=== PATIENT | female | born 1950 | race Caucasian/White ===

== ENCOUNTER → 2016-02-25 | Outpatient (CLI) | payer MEDICARE, OTHER ==
[~2016-02-25] MED LIST: ASPI-983 PO; CALC-694 PO; CYAN500T2 PO; DEXT1TAB14 PO; METO-270 PO; OLME20TA22 PO
[2016-02-25 08:33] LABS: BLOOD UREA NITROGEN 12 MG/DL (7-18); BUN/CREATININE RATIO 14; CREATININE SERUM 0.87 MG/DL (0.60-1.30); GFR ESTIMATED > 60
== END ==
LOC: LAB 08:08
PROVIDERS: ATTEND Internal Medicine Critical Care Medicine
DX: R93.8 Abnormal findings on diagnostic imaging of other specified body structures (principal)
CPT/HCPCS: 36415; 82565; 84520

== ENCOUNTER → 2016-03-02 | Outpatient (CLI) | payer MEDICARE, OTHER ==
[~2016-03-02] MED LIST changes: +CATHETER FLUSH 10 ML SYR IV PRN; +IOHEXOL 350 MG/ML 100 ML (OMNIPAQUE 350) VIAL IV ONE; +NS 100 ML (IVPB) BAG IV ONE
--- NOTE | 2016-03-02 11:19 | Diagnostic Imaging Report ---
PROCEDURE: CT chest with contrast only. TECHNIQUE: Multiple contiguous axial images were obtained through the chest after administration of intravenous contrast. INDICATION: Followup lung nodule and evaluate left hilar fullness. FINDINGS: The lungs demonstrate upper lobe predominant centrilobular emphysema. There are also fibrotic changes in the lung bases which appear similar to the previous exam. This includes a 1-cm area in the anterior right costophrenic angle region. There is chronic atelectasis of the medial segment of the right middle lobe with obliteration of the segmental bronchus to the right middle lobe. This is similar to the prior exam. There is no pleural or pericardial effusion. The heart size is normal. The thoracic aorta demonstrates atherosclerotic plaque with no aneurysmal dilatation or significant stenosis. There is no mediastinal mass. There are mildly enlarged nonspecific mediastinal lymph nodes including precarinal 1.1 cm and a 0.9-cm infracarinal lymph node, when measured in short axis seen. Also a minimally prominent right hilar node measuring 0.8 cm is seen. Sections in the upper abdomen demonstrate no adrenal mass. The osseous structures appear grossly unremarkable. IMPRESSION: 1. Nodular densities up to 1 cm in size in the right lung base are likely related to scarring. Followup study in four months is recommended. 2. Atelectasis in the medial segment of the right middle lobe with obliteration of the right middle lobe bronchus. Evaluation with bronchoscopy is suggested to rule out an endobronchial lesion. 3. Borderline-sized mediastinal and right hilar lymph nodes of uncertain significance. Report was stat faxed to office of Dr. Moses @ 11:19 AM/evelyn. Dictated by: Dictated on workstation # [id number]
== END ==
LOC: RAD 09:08
PROVIDERS: ATTEND Internal Medicine Critical Care Medicine
DX: R93.8 Abnormal findings on diagnostic imaging of other specified body structures (principal); J98.11 Atelectasis
CPT/HCPCS: 71260

== ENCOUNTER → 2016-04-13 | Outpatient (CLI) | payer MEDICARE, OTHER ==
[~2016-04-13] MED LIST changes: -CATHETER FLUSH 10 ML SYR IV PRN; -IOHEXOL 350 MG/ML 100 ML (OMNIPAQUE 350) VIAL IV ONE; -NS 100 ML (IVPB) BAG IV ONE
--- OUTSIDE RECORDS SUMMARY | 2016-04-13 16:09 | XMS REPORT | Continuity of Care Document ---
Author Author [facility] Organization [facility] Address Unknown Phone Unavailable Allergies Active Description Code Type Severity Reaction Onset Reported/Identified Relationship to Patient Clinical Status Yes No Known Drug Allergies [id number] Drug Allergy Unknown N/ A 09/22/2015 Medications Problems Date Dx Coded Attending Type Code Diagnosis Diagnosed By 07/03/2015 LALY WATKINS MD Ot I10 ESSENTIAL (PRIMARY) HYPERTENSION 07/03/2015 LALY WATKINS MD Ot I25.10 ATHSCL HEART DISEASE OF [place] CORONARY 07/03/2015 LALY WATKINS MD Ot R06.02 SHORTNESS OF BREATH 07/03/2015 LALY WATKINS MD Ot Z72.0 TOBACCO USE 09/24/2015 LALY WATKINS MD Ot I10 ESSENTIAL (PRIMARY) HYPERTENSION 09/24/2015 LALY WATKINS MD Ot I25.10 ATHSCL HEART DISEASE OF [place] CORONARY 09/24/2015 LALY WATKINS MD Ot R06.02 SHORTNESS OF BREATH 09/24/2015 LALY WATKINS MD Ot Z72.0 TOBACCO USE 10/15/2015 LALY WATKINS MD Ot I10 ESSENTIAL (PRIMARY) HYPERTENSION 10/15/2015 LALY WATKINS MD Ot I25.10 ATHSCL HEART DISEASE OF [place] CORONARY 10/15/2015 LALY WATKINS MD Ot R06.02 SHORTNESS OF BREATH 10/15/2015 LALY WATKINS MD Ot Z72.0 TOBACCO USE 11/18/2015 LALY WATKINS MD Ot I10 ESSENTIAL (PRIMARY) HYPERTENSION 11/18/2015 LALY WATKINS MD Ot I25.10 ATHSCL HEART DISEASE OF [place] CORONARY 11/18/2015 LALY WATKINS MD Ot R06.02 SHORTNESS OF BREATH 11/18/2015 LALY WATKINS MD Ot Z72.0 TOBACCO USE 01/14/2016 LALY WATKINS MD Ot I10 ESSENTIAL (PRIMARY) HYPERTENSION 01/14/2016 LALY WATKINS MD Ot I25.10 ATHSCL HEART DISEASE OF [place] CORONARY 01/14/2016 LALY WATKINS MD Ot R06.02 SHORTNESS OF BREATH 01/14/2016 LALY WATKINS MD Ot Z72.0 TOBACCO USE 01/14/2016 LALY WATKINS MD Ot I10 ESSENTIAL (PRIMARY) HYPERTENSION 01/14/2016 LALY WATKINS MD Ot I25.10 ATHSCL HEART DISEASE OF [place] CORONARY 01/14/2016 LALY WATKINS MD Ot R06.02 SHORTNESS OF BREATH 01/14/2016 LALY WATKINS MD Ot Z72.0 TOBACCO USE 01/14/2016 LALY WATKINS MD Ot F17.210 NICOTINE DEPENDENCE, CIGARETTES, UNCOMPL 01/14/2016 LALY WATKINS MD Ot I10 ESSENTIAL (PRIMARY) HYPERTENSION 01/14/2016 LALY WATKINS MD Ot I25.10 ATHSCL HEART DISEASE OF [place] CORONARY 01/14/2016 LALY WATKINS MD Ot R07.89 OTHER CHEST PAIN 01/14/2016 LALY WATKINS MD Ot R91.1 SOLITARY PULMONARY NODULE 01/14/2016 LALY WATKINS MD Ot R94.39 ABNORMAL RESULT OF OTHER CARDIOVASCULAR 01/14/2016 LALY WATKINS MD Ot Z79.899 OTHER ASSISTED (CURRENT) DRUG THERAPY 01/16/2016 LALY WATKINS MD Ot R91.1 SOLITARY PULMONARY NODULE 01/29/2016 LENORA MASCORRO DO Ot R93.8 ABNORMAL FINDINGS ON DIAGNOSTIC IMAGING 01/29/2016 LALY WATKINS MD Ot F17.210 NICOTINE DEPENDENCE, CIGARETTES, UNCOMPL 01/29/2016 LALY WATKINS MD Ot I10 ESSENTIAL (PRIMARY) HYPERTENSION 01/29/2016 LALY WATKINS MD Ot I25.10 ATHSCL HEART DISEASE OF [place] CORONARY 01/29/2016 LALY WATKINS MD Ot R07.89 OTHER CHEST PAIN 01/29/2016 LALY WATKINS MD Ot R91.1 SOLITARY PULMONARY NODULE 01/29/2016 LALY WATKINS MD Ot R94.39 ABNORMAL RESULT OF OTHER CARDIOVASCULAR 01/29/2016 LALY WATKINS MD Ot Z79.899 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 01/29/2016 LENORA MASCORRO DO Ot R93.8 ABNORMAL FINDINGS ON DIAGNOSTIC IMAGING 01/31/2016 LALY WATKINS MD Ot F17.210 NICOTINE DEPENDENCE, CIGARETTES, UNCOMPL 01/31/2016 LALY WATKINS MD Ot I10 ESSENTIAL (PRIMARY) HYPERTENSION 01/31/2016 LALY WATKINS MD, Ot I25.10 ATHSCL HEART DISEASE OF [place] CORONARY 01/31/2016 LALY WATKINS MD Ot R07.89 OTHER CHEST PAIN 01/31/2016 LALY WATKINS MD, Ot R91.1 SOLITARY PULMONARY NODULE 01/31/2016 LALY WATKINS MD Ot R94.39 ABNORMAL RESULT OF OTHER CARDIOVASCULAR 01/31/2016 LALY WATKINS MD, Ot Z79.899 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 02/12/2016 LALY WATKINS MD, Ot R91.1 SOLITARY PULMONARY NODULE 02/23/2016 LENORA MSACORRO DO Ot R93.8 ABNORMAL FINDINGS ON DIAGNOSTIC IMAGING 03/03/2016 LENORA MASCORRO DO Ot J98.11 ATELECTASIS 03/03/2016 LENORA MASCORRO DO Ot R93.8 ABNORMAL FINDINGS ON DIAGNOSTIC IMAGING 03/17/2016 LENORA MASCORRO DO Ot R93.8 ABNORMAL FINDINGS ON DIAGNOSTIC IMAGING 03/25/2016 LENORA MASCORRO DO Ot J98.11 ATELECTASIS 03/25/2016 LENORA MASCORRO DO Ot R93.8 ABNORMAL FINDINGS ON DIAGNOSTIC IMAGING Procedures Results Test Result Range Automated blood complete blood count (hemogram) panel - 01/14/16 08:38 Blood leukocytes automated count (number/volume) 10.3 10*3/ uL 4.3-11.0 Blood erythrocytes automated count (number/volume) 4.61 10*6 /uL 4.35-5.85 Venous blood hemoglobin measurement (mass/volume) 15.6 g/dL 11.5-16.0 Blood hematocrit (volume fraction) 44 % 35-52 Automated erythrocyte mean corpuscular volume 96 [foz_us] 80-99 Automated erythrocyte mean corpuscular hemoglobin (mass per erythrocyte) 34 pg 25-34 Automated erythrocyte mean corpuscular hemoglobin concentration measurement ( mass/volume) 35 g/dL 32-36 Automated erythrocyte distribution width ratio 14.1 % 10.0-14.5 Automated blood platelet count (count/volume) 426 10*3/uL 130-400 Automated blood platelet mean volume measurement 11.5 [foz_ us] 7.4-10.4 PT panel in platelet poor plasma by coagulation assay - 01/14/16 08:38 Prothrombin time (PT) in platelet poor plasma by coagulation assay 12.8 s 12.2-14.7 INR in platelet poor plasma or blood by coagulation assay 1.0 0.8-1.4 Activated partial thromboplastin time (aPTT) in platelet poor plasma bycoagulation assay - 01/14/16 08:38 Activated partial thromboplastin time (aPTT) in platelet poor plasma bycoagulation assay 35 s 24-35 Comprehensive metabolic panel - 01/14/16 08:38 Serum or plasma sodium measurement (moles/volume) 141 mmol/ L 135-145 Serum or plasma potassium measurement (moles/volume) 3.8 mmol/L 3.6-5.0 Serum or plasma chloride measurement (moles/volume) 107 mmol /L 98-107 Carbon dioxide 24 mmol/L 21-32 Serum or plasma anion gap determination (moles/volume) 10 mmol/L 5-14 Serum or plasma urea nitrogen measurement (mass/volume) 10 mg/dL 7-18 Serum or plasma creatinine measurement (mass/volume) 0.81 mg /dL 0.60-1.30 Serum or plasma urea nitrogen/creatinine mass ratio 12 NRG Serum or plasma creatinine measurement with calculation of estimated glomerular filtration rate > NRG Serum or plasma glucose measurement (mass/volume) 89 mg/dL 70-105 Serum or plasma calcium measurement (mass/volume) 9.6 mg/dL 8.5-10.1 Serum or plasma total bilirubin measurement (mass/volume) 0.3 mg/dL 0.1-1.0 Serum or plasma alkaline phosphatase measurement (enzymatic activity/volume) 93 U/L 40-136 Serum or plasma aspartate aminotransferase measurement (enzymatic activity/ volume) 20 U/L 5-34 Serum or plasma alanine aminotransferase measurement (enzymatic activity/volume ) 14 U/L 0-55 Serum or plasma protein measurement (mass/volume) 7.3 g/dL 6.4-8.2 Serum or plasma albumin measurement (mass/volume) 4.4 g/dL 3.2-4.5 Lipid 1996 panel - 11/30/16 08:38 Serum or plasma triglyceride measurement (mass/volume) 131 mg/dL <150 Serum or plasma cholesterol measurement (mass/volume) 180 mg /dL < 200 Serum or plasma cholesterol in HDL measurement (mass/volume) 48 mg/dL 40-60 Cholesterol in LDL [mass/volume] in serum or plasma by direct assay 115 mg/dL 1-129 Serum or plasma cholesterol in VLDL measurement (mass/volume) 26 mg/dL 5-40 Complete urinalysis with reflex to culture - 01/14/16 08:38 Urine color determination YELLOW NRG Urine clarity determination CLEAR NRG Urine pH measurement by test strip 7 5- 9 Specific gravity of urine by test strip 1.010 1.016-1.022 Urine protein assay by test strip, semi-quantitative NEGATIVE NEGATIVE Urine glucose detection by automated test strip NEGATIVE NEGATIVE Erythrocytes detection in urine sediment by light microscopy 1+ NEGATIVE Urine ketones detection by automated test strip NEGATIVE NEGATIVE Urine nitrite detection by test strip NEGATIVE NEGATIVE Urine total bilirubin detection by test strip NEGATIVE NEGATIVE Urine urobilinogen measurement by automated test strip (mass/volume) NORMAL NORMAL Urine leukocyte esterase detection by dipstick 3+ NEGATIVE Automated urine sediment erythrocyte count by microscopy (number/high power field) [HPF] NRG Automated urine sediment leukocyte count by microscopy (number/high power field ) [HPF] NRG Bacteria detection in urine sediment by light microscopy NEGATIVE NRG Squamous epithelial cells detection in urine sediment by light microscopy 2-5 NRG Crystals detection in urine sediment by light microscopy NONE NRG Casts detection in urine sediment by light microscopy NONE NRG Mucus detection in urine sediment by light microscopy NEGATIVE NRG Complete urinalysis with reflex to culture YES NRG Bacterial urine culture - 01/14/16 08:38 URINE CULTURE RESULTS <10,000/ML NRG Methicillin resistant Staphylococcus aureus (MRSA) screening culture - 08:38 Methicillin resistant Staphylococcus aureus (MRSA) screening culture NEG NRG Encounters ACCT No. Visit Date/Time Discharge Status Pt. Type Provider Facility Loc./Unit Complaint [id number] 01/14/2016 08:03:00 2015 15:50:00 DIS Outpatient JUNE KEMP, LALY Silva [facility] CATH ABN STRESS TEST,CP,HTN,HLP [id number] 03/02/2016 09:08:00 ACT Outpatient LENORA MASCORRO DO [facility] RAD ABN CHEST CT [id number] 02/25/2016 08:08:00 ACT Outpatient LENORA MASCORRO DO [facility] LAB ABNORMAL CHEST CT [id number] 01/28/2016 07:13:00 ACT Outpatient LENORA MASCORRO DO [facility] RT ABN CHEST CT [id number] 01/15/2016 08:32:00 ACT Outpatient LALY WATKINS MD [facility] RAD R91.1 [id number] 09/22/2015 07:40:00 ACT Outpatient LALY WATKINS MD [facility] CARD CAD,SOB ON EXERTION,HTN,TOBACCO USER [id number] 06/12/2015 14:40:00 ACT Outpatient LALY WATKINS MD [facility] CARD CAD,HTN,TOBACCO USER,SOB ON EXERTION
--- NOTE | 2016-04-15 09:34 | ECHOCARDIOGRAPHY REPORT ---
PROCEDURE PHYSICIAN: LALY WATKINS DATE OF PROCEDURE: 04/13/2016 TWO DIMENSIONAL ECHOCARDIOGRAM REPORT PRIMARY PHYSICIAN: OTHER PHYSICIAN: REFERRING PHYSICIAN: Dr. Rose Mary Krishnan ORDERING PHYSICIAN: INDICATION FOR THE PROCEDURE: 1. Congestive heart failure. 2. Coronary artery disease. MEASUREMENTS DERIVED VALUES LV DIAMETER (LAX) NORMALS NORMALS Diastolic 3.6 (3.6-5.2) Eject. Fract. 50% (60%+/-6%) Systolic (2.3-3.9) Diastolic Vol. % Shortening (0.22-0.42) Systolic Vol. Aortic Root IVS THICKNESS Diastolic 1 (0.6-1.1) LVPW THICKNESS Diastolic 1 (0.6-1.1) LA DIAMETER Systolic 3.6 (2.1-3.7) FINDINGS: 1. Technical quality is good. 2. The left ventricle is normal in size with normal contractility. Systolic function appeared to be normal. Estimated ejection fraction 50%, improvement compared to the previous study. 3. The left atrium is normal in size. No clot or thrombus were seen within the left atrium. 4. The right atrium and right ventricle are normal in size. No clot or thrombus were seen within the right side. 5. Mitral valve is normal in morphology with mild mitral regurgitation noted by color Doppler flow. No mitral valve prolapse. No mitral valve stenosis. 6. Aortic valve is trileaflet with normal opening and closing pattern. No significant aortic stenosis or regurgitation was seen. 7. Tricuspid valve is normal in morphology with mild tricuspid regurgitation noted by color Doppler flow. Doppler across tricuspid valve estimated pulmonary artery pressure of 42+ right atrial pressure. 8. Pulmonic valve is functioning normally. 9. No pericardial effusion. CONCLUSION: 1. Normal left ventricular size, systolic function has improved. Estimated ejection fraction 50%. 2. Mild mitral and tricuspid regurgitation. 3. Pulmonary hypertension with estimated pulmonary artery pressure of 50 mmHg. Job ID: [id number] Dictated Date: 04/14/2016 17:25:34 Tool Checker Date: 04/15/2016 09:31:58 / heber
== END ==
LOC: CARD 14:22
PROVIDERS: ATTEND Internal Medicine Cardiovascular Disease
DX: I25.10 Atherosclerotic heart disease of native coronary artery without angina pectoris (principal); I10 Essential (primary) hypertension; R06.02 Shortness of breath; R94.39 Abnormal result of other cardiovascular function study; Z72.0 Tobacco use
CPT/HCPCS: 93306

== ENCOUNTER 2016-11-22 05:33 | Outpatient (CLI) | payer OTHER ==
[~2016-11-22] VITALS: Ht 170.2 cm; Wt 43.1 kg
[2016-11-22] MEDS ORDERED: LISI-552 PO (10:45)
[2016-11-22] MEDS ORDERED: MULT-1029 PO (10:45)
[2016-11-22] MEDS ORDERED: MELA3TAB PO (10:45)
[2016-11-22] MEDS ORDERED: AMLO5TAB2 PO (10:45)
== END 2016-11-22 10:53 ==
LOC: PREOP 05:33
PROVIDERS: ATTEND Internal Medicine Critical Care Medicine
DX: Z01.818 Encounter for other preprocedural examination (principal); R91.8 Other nonspecific abnormal finding of lung field

== ENCOUNTER → 2016-12-14 | Outpatient (CLI) | payer MEDICARE, OTHER ==
[~2016-12-14] MED LIST changes: +AMLO5TAB2 PO; +IOHEXOL 350 MG/ML 100 ML (OMNIPAQUE 350) VIAL IV ONE; +LISI-552 PO; +MELA3TAB PO; +MULT-1029 PO; +NS 100 ML (IVPB) BAG IV ONE
[2016-12-14 10:00] LABS: BLOOD UREA NITROGEN 17 MG/DL (7-18); BUN/CREATININE RATIO 20; CREATININE SERUM 0.85 MG/DL (0.60-1.30); GFR ESTIMATED > 60
--- NOTE | 2016-12-14 11:51 | Diagnostic Imaging Report ---
PROCEDURE: CT chest with contrast only. TECHNIQUE: Multiple contiguous axial images were obtained through the chest after administration of intravenous contrast. INDICATION: Lung nodules. CONTRAST: 75 mL of Omnipaque 350 is administered intravenously. FINDINGS: There is chronic atelectasis and scarring in the right middle lobe and inferior lingula. There is mild bronchiectasis in the right middle lobe. Previously seen nodular densities in the anterior aspect of the right lung base have improved. There is a new tiny area of focal nodularity however now seen in the posterior aspect of the right lower lobe in a somewhat dependent region in favor of a focal minimal atelectasis. Also mild atelectasis is suggested more inferiorly along the posterior costophrenic angle. No significant consolidation, mass or suspicious nodule is seen at this time. Pleural parenchymal thickening in the lung apices is seen. There is upper lobe predominant emphysema. The heart size is near the upper limits of normal. No pericardial or pleural effusion. The thoracic aorta is normal in caliber. There is pretracheal, minimally prominent lymph node measuring 0.9 cm in size of questionable clinical significance. No lymphadenopathy is seen otherwise in the chest. Sections in the upper abdomen appear grossly unremarkable. The osseous structures appear grossly unremarkable. IMPRESSION: 1. Emphysema. 2. Stable scarring in the right middle lobe and lingula. 3. Remaining densities in the right lower lobe are favored to represent areas of atelectasis with no significant consolidation or suspicious mass seen. Dictated by: Dictated on workstation # [id number]
== END ==
LOC: RAD 09:26
PROVIDERS: ATTEND Nurse Practitioner Family
DX: R91.8 Other nonspecific abnormal finding of lung field (principal); R06.02 Shortness of breath; J43.9 Emphysema, unspecified; Z72.0 Tobacco use
CPT/HCPCS: 36415; 71260; 82565; 84520

== ENCOUNTER → 2017-12-20 | Outpatient (CLI) | payer MEDICARE, OTHER ==
[~2017-12-20] MED LIST changes: -AMLO5TAB2 PO; +AMLO5TAB7 PO; -IOHEXOL 350 MG/ML 100 ML (OMNIPAQUE 350) VIAL IV ONE; -METO-270 PO; +METO-387 PO; -NS 100 ML (IVPB) BAG IV ONE; +OLME20TA21 PO; -OLME20TA22 PO
== END ==
LOC: CARD 09:51
PROVIDERS: ATTEND Internal Medicine Cardiovascular Disease
DX: I25.10 Atherosclerotic heart disease of native coronary artery without angina pectoris (principal); J43.9 Emphysema, unspecified; I10 Essential (primary) hypertension; R91.8 Other nonspecific abnormal finding of lung field; R06.02 Shortness of breath; Z72.0 Tobacco use; I08.1 Rheumatic disorders of both mitral and tricuspid valves
CPT/HCPCS: 93306

== ENCOUNTER → 2020-03-19 | Outpatient (CLI) | payer MEDICARE, OTHER ==
[~2020-03-19] VITALS: Ht 170 cm; Wt 40.0 kg
[~2020-03-19] MED LIST changes: +AMLO-250 PO; -AMLO5TAB7 PO; +ASPI-1238 PO; -ASPI-983 PO; +CATHETER FLUSH 10 ML SYR IV PRN; -CYAN500T2 PO; +CYAN500T8 PO; -MELA3TAB PO; +MELA3TAB39 PO; -METO-387 PO; +MTP25TSR PO; +REGADENOSON 0.4 MG/5 ML SYR (LEXISCAN) IV ONE
[2020-03-19 10:21] LABS: ALANINE AMINOTRANSFERASE 16 U/L (0-55); ALBUMIN 4.3 GM/DL (3.2-4.5); ALKALINE PHOSPHATASE 81 U/L (40-136); BILIRUBIN,TOTAL 0.7 MG/DL (0.1-1.0); BUN/CREATININE RATIO 13; CALCIUM 9.6 MG/DL (8.5-10.1); CARBON DIOXIDE 23 MMOL/L (21-32); CHLORIDE 106 MMOL/L (98-107); CHOLESTEROL 205 MG/DL (< 200); CREATININE SERUM 0.86 MG/DL (0.60-1.30); GFR ESTIMATED > 60; GLUCOSE 114 MG/DL (70-105); HDL CHOLESTEROL 62 MG/DL (40-60); POTASSIUM 4.1 MMOL/L (3.6-5.0); SODIUM 140 MMOL/L (135-145); TOTAL PROTEIN 7.5 GM/DL (6.4-8.2); TRIGLYCERIDES 106 MG/DL (<150); VLDL CHOLESTEROL 21 MG/DL (5-40)
[2020-03-19 12:29] VITALS: BP 149/76
--- NOTE | 2020-03-19 15:10 | Cardiology Stress Test Report ---
Stress Test Report Date of Procedure/Referring: Date of Procedure: Mar 19, 2020 Jeanette Isbell Admitting Physician Rose Mary Krishnan MD Indications: Chest pain Baseline Heart Rate: 85 Baseline Blood Pressure: Blood Pressure Systolic: 149 Blood Pressure Diastolic: 76 Baseline Vitals Vital Signs Date Time Temp Pulse Resp B/P (MAP) Pulse Ox O2 Delivery O2 Flow Rate FiO2 03/19/20 12:29 85 149/76 (100) Baseline EKG: Baseline EKG: normal sinus rhythm Summary After explaining the procedure to the patient, she signed a consent and then brought to the stress nuclear laboratory. Patient received 0.4 mg Lexiscan for stress test, ECG, heart rate and blood pressure were monitored continuously. Resting and stress dose of radio tracer were injected, imaging was acquired and reviewed in short axis, horizontal long axis and vertical long axis views. TID: 1.08 SSS: 5 SDS: 0 EF: 75 1. Patient tolerated Lexiscan well 2. Extracardiac attenuation due to the left arm being down during image acquisition affecting the quality of the images, fixed defect at the mid to apical anterolateral wall, no significant ischemia or infarction 3. Normal left ventricular size, EF 75 percent LALY WATKINS MD Mar 19, 2020 15:10
== END ==
LOC: CARD 09:41
PROVIDERS: ATTEND Physician Assistant
DX: I25.10 Atherosclerotic heart disease of native coronary artery without angina pectoris (principal); E78.2 Mixed hyperlipidemia
CPT/HCPCS: 78452; 80053; 80061; 93017; 93306; A9502; 36415

== ENCOUNTER 2020-12-04 23:55 | Inpatient (IN) | payer MEDICARE ==
[~2020-12-04] VITALS: Ht 170.8 cm; Wt 47.3 kg
[~2020-12-04 23:55] MED LIST changes: -CATHETER FLUSH 10 ML SYR IV PRN; -LISI-552 PO; +LISI20TA26 PO; -REGADENOSON 0.4 MG/5 ML SYR (LEXISCAN) IV ONE
[2020-12-05] VITALS (8 sets, daily range): BP systolic 111–160; BP diastolic 54–75
[2020-12-05] MEDS ORDERED: cefTRIAXone 1,000 MG in WATER (STERILE) FOR INJECTION 10 ML IV ONE (02:00)
[2020-12-05] MEDS ORDERED: AZITHROMYCIN INJECTION 500 MG in NS (IVPB) 250 ML IV ONE (02:00)
[2020-12-05] MEDS ORDERED: RT-ALBUTEROL SULF 2.5 MG/3 ML PRE-MIX VIAL INH PRN (03:00)
[2020-12-05] MEDS: cefTRIAXone 1,000 MG in WATER (STERILE) FOR INJECTION 10 ML IV SCH (03:02)
[2020-12-05] MEDS: RT-ALBUTEROL/IPRATROPIUM 3 ML (DUONEB) VIAL INH SCH ×4 (08:12→19:43)
[2020-12-05] MEDS: NICOTINE 21 MG (NICODERM) PATCH TD SCH (09:03)
[2020-12-05] MEDS: ACETAMINOPHEN 500 MG TAB (TYLENOL) PO PRN ×2 (09:06→21:01)
--- NOTE | 2020-12-05 09:13 | Diagnostic Imaging Report ---
INDICATION: Pneumonia, sepsis and pneumothorax. TIME OF EXAM: 8:42 AM Correlation is made with prior chest from 11/24/2016. FINDINGS: Heart size stable. There is a moderate size right-sided pneumothorax, measuring approximately 4.7 cm at the right lung apex. There is a basilar component as well. There appears to be some infiltrates or atelectasis in both bases. Mid and upper lung sarabia are clear. IMPRESSION: 1. Moderate right-sided pneumothorax. 2. Bibasilar infiltrates or atelectasis. Dictated by: Dictated on workstation # [id number]
--- NOTE | 2020-12-05 09:24 | Consultation - Surgery ---
PHILL BUTLER 12/05/20 0924: History of Present Illness History of Present Illness Patient Consulted On(bello/time) 12/05/20 09:23 Time Seen by Provider: 09:30 History of Present Illness Consult for pneumonia from Dr. Ravi A 70yo female is admitted to inpatient hospital this morning for ongoing pneumonia for the past two weeks in which she has been seen by Kenny CHAVEZ in [facility] as an outpatient basis. She was prescribed Levoflaxacin 750mg once a day since being seen, she went to the hospital here because her symptoms were progressively getting worse. She reports to being hospitalized and having pneumonia many times. Her symptoms have not improved with antibiotic use, she reports breathing better with rest and worse with exertion. She also reports sore throat, drainage down the throat, and she describes it as a glob stuck in her throat. She has no trouble swallowing foods and reports coughing some mucus at times but it hurts to cough. She has a PMH of COPD and has been smoking about one pack per day since the age of 15, and she denies recreational drug use. She has received the COVID, flu vaccine, and the pneumococcal vaccine by Dr. Krishnan in [place] a few years ago and reports she is up to date on that vaccine. She is doing well on 2L/min of oxygen via N/C at rest. CXR today shows Moderate right-sided pneumothorax and Bibasilar infiltrates or atelectasis. Allergies and Home Medications Allergies Coded Allergies: No Known Drug Allergies (Unverified , 11/22/16) Patient Home Medication List Albuterol Sulfate (Albuterol Sulfate) 2.5 Mg/3 Ml Vial.neb, 3 ML NEB QID PRN for SHORTNESS OF BREATH, (Reported) Entered as Reported by: FENG WEST on 12/05/20 1125 Last Action: Continued Amlodipine Besylate (Amlodipine Besylate) 5 Mg Tablet, 5 MG PO HS, (Reported) Entered as Reported by: ZA GENAO on 11/22/16 1045 Last Action: Continued Aspirin (Aspirin EC) 81 Mg Tablet., 81 MG PO DAILY, (Reported) Entered as Reported by: NEIL CROCKETT on 01/14/16 1117 Last Action: Continued Atorvastatin Calcium (Atorvastatin Calcium) 10 Mg Tablet, 10 MG PO HS, (Reported) Entered as Reported by: FENG WEST on 12/05/201124 Last Action: Continued Calcium Carbonate (Calcium Carbonate) 500 Mg Tablet, 500 MG PO DAILY, (Reported) Entered as Reported by: FENG WEST on 12/05/201124 Last Action: Converted Levofloxacin (Levofloxacin) 750 Mg Tablet, 750 MG PO DAILY, (Reported) Entered as Reported by: FENG WEST on 12/05/201124 Last Action: Held Lisinopril (Lisinopril) 20 Mg Tablet, 20 MG PO DAILY, (Reported) Entered as Reported by: ZA GENAO on 11/22/161044 Last Action: Continued Metoprolol Tartrate (Metoprolol Tartrate) 25 Mg Tablet, 12.5 MG PO BID, (Reported) Entered as Reported by: FENG WEST on 12/05/201124 Last Action: Continued Prednisone (Prednisone) 20 Mg Tab, MG PO DAILY, (Reported) Entered as Reported by: FENG WEST on 12/05/201124 Last Action: Held Discontinued Medications Calcium Carbonate/Vitamin D3 (Calcium 600 + Vit D Caplet) 1 Each Tablet, 1 TAB PO DAILY, (Reported) Discontinued Reason: Prescription changed Entered as Reported by: NEIL CROCKETT on 01/14/161116 Cyanocobalamin (Vitamin B-12) (Vitamin B-12) 500 Mcg Tablet, 500 MCG PO DAILY, (Reported) Discontinued Reason: No Longer Taking Entered as Reported by: NEIL CROCKETT on 01/14/161116 Last Action: Discontinued Melatonin (Melatonin) 3 Mg Tablet, 3 MG PO HS, (Reported) Discontinued Reason: No Longer Taking Entered as Reported by: ZA GENAO on 11/22/161044 Last Action: Discontinued Metoprolol Succinate (Metoprolol Succinate) 25 Mg Tab.er.24h, 12.5 MG PO BID, (Reported) Discontinued Reason: No Longer Taking Entered as Reported by: NEIL CROCKETT on 01/14/161116 Last Action: Discontinued Multivit-Min/FA/Lycopene/Lut (Centrum Silver Tablet) 1 Each Tablet, 1 EACH PO DAILY, (Reported) Discontinued Reason: No Longer Taking Entered as Reported by: ZA GENAO on 10/9/17 1045 Last Action: Discontinued Past Mimijnr-Gnjgul-Cmzcyd Hx Patient Social History Smoking Status: Current Everyday Smoker Type Used: Cigarettes Recent Hopitalizations: No Alcohol Use?: No Have you traveled recently?: No Immunizations Up To Date Date of Pneumonia Vaccine: Feb 24, 2015 Date of Influenza Vaccine: Nov 27, 2020 Seasonal Allergies Seasonal Allergies: No Surgeries Surgeries: Appendectomy, Section, Hysterectomy Respiratory Respiratory Disorders: COPD Cardiovascular Cardiac Disorders: Heart Attack, Hypertension, Peripheral Vascular Neurological Neurological Disorders: Stroke Reproductive System Hx Reproductive Disorders: No Sexually Transmitted Disease: No HIV/AIDS: No HEENT Loss of Vision: Bilateral Hearing Impairment: Denies Blood Transfusions Adverse Reaction to a Blood Tr: No (N/A) Review of Systems-General Constitutional: No chills, No fever EENTM: eye pain; No mouth pain Respiratory: cough, dyspnea on exertion, short of breath Cardiovascular: No chest pain, No palpitations Gastrointestinal: No abdominal pain; constipation; No diarrhea, No nausea, No vomiting Physical Exam-General Problems Physical Exam Vital Signs Vital Signs - First Documented 12/05/20 12/05/20 01:27 02:16 Temp 36.6 Pulse 100 Resp 22 B/P (MAP) 130/60 (83) Pulse Ox 93 O2 Delivery Nasal Cannula O2 Flow Rate 2.00 FiO2 28 Capillary Refill : General Appearance: no apparent distress, thin HEENT: PERRL/EOMI Respiratory: decreased breath sounds (more prominent in right lung); No crackles Cardiovascular: no gallop, no JVD, no murmur, tachycardia Gastrointestinal: normal bowel sounds, non tender, soft Neurologic/Psychiatric: no motor/sensory deficits, alert, normal mood/affect, oriented x 3 Skin: normal color, warm/dry Assessment/Plan Assessment/Plan Assessment/Plan Pneumothorax right side B/L pneumonia HTN Low BMI Treat the patient with oxygen and antibiotics. Monitor her oxygen saturation and maintain proper nutrition as she is underweight. ELEANOR KAPOOR DO 12/06/20 1408: History of Present Illness History of Present Illness Date Seen by Provider: Dec 05, 2020 History of Present Illness Consult requested by Dr. Kelley for right pneumothorax. Patient is 70-year-old female who was admitted for bilateral pneumonia failing outpatient therapy. Patient had a chest x-ray demonstrating bilateral infiltrates and a moderate right-sided pneumothorax. Patient has been treated on oral antibiotics for bilateral pneumonias. She is progressively gotten worse. She is having a more difficult time breathing. Patient had a recent fall where she fell on the right side approximately 1 week ago. Patient has discontinued to have short of air with increasing activity and not improving. Patient denies any nausea vomiting fever sweats chills shortness of breath or chest pain. She is having some slight cough with some mucus at times. Allergies and Home Medications Allergies Coded Allergies: No Known Drug Allergies (Unverified , 11/22/16) Patient Home Medication List Home Medication List Reviewed: Yes Albuterol Sulfate (Albuterol Sulfate) 2.5 Mg/3 Ml Vial.neb, 3 ML NEB QID PRN for SHORTNESS OF BREATH, (Reported) Entered as Reported by: FNEG WEST on 12/05/20 112 Last Action: Continued Amlodipine Besylate (Amlodipine Besylate) 5 Mg Tablet, 5 MG PO HS, (Reported) Entered as Reported by: ZA GENAO on 11/22/16 1045 Last Action: Continued Aspirin (Aspirin EC) 81 Mg Tablet.dr, 81 MG PO DAILY, (Reported) Entered as Reported by: NEIL CROCKETT on 01/14/16 1117 Last Action: Continued Atorvastatin Calcium (Atorvastatin Calcium) 10 Mg Tablet, 10 MG PO HS, (Reported) Entered as Reported by: FENG WEST on 12/05/20 112 Last Action: Continued Calcium Carbonate (Calcium Carbonate) 500 Mg Tablet, 500 MG PO DAILY, (Reported) Entered as Reported by: FENG WEST on 12/05/20 112 Last Action: Converted Levofloxacin (Levofloxacin) 750 Mg Tablet, 750 MG PO DAILY, (Reported) Entered as Reported by: FENG WEST on 12/05/20 112 Last Action: Held Lisinopril (Lisinopril) 20 Mg Tablet, 20 MG PO DAILY, (Reported) Entered as Reported by: ZA GENAO on 11/22/16 1045 Last Action: Continued Metoprolol Tartrate (Metoprolol Tartrate) 25 Mg Tablet, 12.5 MG PO BID, (Reported) Entered as Reported by: FENG WEST on 12/05/20 112 Last Action: Continued Prednisone (Prednisone) 20 Mg Tab, MG PO DAILY, (Reported) Entered as Reported by: FENG WEST on 12/05/20 1125 Last Action: Held Discontinued Medications Calcium Carbonate/Vitamin D3 (Calcium 600 + Vit D Caplet) 1 Each Tablet, 1 TAB PO DAILY, (Reported) Discontinued Reason: Prescription changed Entered as Reported by: NEIL CROCKETT on 01/14/16 1117 Cyanocobalamin (Vitamin B-12) (Vitamin B-12) 500 Mcg Tablet, 500 MCG PO DAILY, (Reported) Discontinued Reason: No Longer Taking Entered as Reported by: NEIL CROCKETT on 01/14/16 111 Last Action: Discontinued Melatonin (Melatonin) 3 Mg Tablet, 3 MG PO HS, (Reported) Discontinued Reason: No Longer Taking Entered as Reported by: ZA GENAO on 11/22/16 104 Last Action: Discontinued Metoprolol Succinate (Metoprolol Succinate) 25 Mg Tab.er.24h, 12.5 MG PO BID, (Reported) Discontinued Reason: No Longer Taking Entered as Reported by: NEIL CROCKETT on 01/14/161116 Last Action: Discontinued Multivit-Min/FA/Lycopene/Lut (Centrum Silver Tablet) 1 Each Tablet, 1 EACH PO DAILY, (Reported) Discontinued Reason: No Longer Taking Entered as Reported by: ZA GENAO on 11/22/16 1045 Last Action: Discontinued Past Moybarb-Ctjljv-Firdob Hx Reviewed Nursing Assessment Reviewed/Agree w Nursing PMH: Yes Family Medical History Significant Family History: No Pertinent Family Hx Review of Systems-General Constitutional: No chills, No fever EENTM: No blurred vision, No eye pain, No mouth pain Respiratory: cough, dyspnea on exertion, short of breath Gastrointestinal: No abdominal pain, No diarrhea, No nausea, No vomiting Genitourinary: No decreased output, No discharge Musculoskeletal: No back pain, No joint pain Skin: No change in color, No change in hair/nails Psychiatric/Neurological: Denies Anxiety, Denies Depressed, Denies Emotional Problems All Other Systems Reviewed Negative Unless Noted: Yes (Negative excepted noted.) Physical Exam-General Problems Physical Exam General Appearance: no apparent distress, thin (Laying still) HEENT: PERRL/EOMI, TMs normal Respiratory: decreased breath sounds ( right lung); No crackles Cardiovascular: no JVD, tachycardia Gastrointestinal: non tender, soft Rectal: deferred Back: no CVA tenderness, no vertebral tenderness Extremities: normal inspection, no pedal edema Neurologic/Psychiatric: no motor/sensory deficits, alert, normal mood/affect, oriented x 3 Skin: normal color, warm/dry Lymphatic: no adenopathy Assessment/Plan Assessment/Plan Assessment/Plan Pneumothorax right side B/L pneumonia HTN Low BMI Patient with a moderate right sized pneumothorax. Will place Thora vent. Patient has been understand risk and benefits of this procedure and they wish to proceed. Continue antibiotic therapy for bilateral pneumonia. We will need repeat chest x-ray after Thora vent placed. We will continue to monitor to make sure the lung reexpanded since feels and will then plan on removing the Thora vent Procedure: Right Thoravent placement (thoracostomy tube placement). Patient was prepped draped in sterile fashion. 5 mL of 1% lidocaine was used anesthetize the right chest and chest wall. This was done approximately between the third and fourth ribs on the right. 11 blade scalpel was used to make a small skin incision the Thora vent was then advanced through the chest wall until of the catheter was in the chest cavity the and the catheter was then advanced and the trocar was withdrawn. The Thora vent was then secured in the usual fashion. The valve demonstrated movement of air being removed from the chest cavity. Chest x-ray pending. Supervisory-Addendum Brief Verification & Attestation Participated in pt care: history, MDM, physical Personally performed: exam, history, MDM, supervision of care Care discussed with: Medical Student Procedures: performed (by me) Results interpretation: Verified all documentation Verification and Attestation of Medical Student E/M Service A medical student performed and documented this service in my presence. I reviewed and verified all information documented by the medical student and made modifications to such information, when appropriate. I personally performed the physical exam and medical decision making. Eleanor Kapoor, Dec 05, 2020,14:08 PHILL BUTLER Dec 05, 2020 09:24 ELEANOR KAPOOR DO Dec 06, 2020 14:08
--- NOTE | 2020-12-05 10:09 | History & Physical-Hospitalist ---
History of Present Illness HPI/Chief Complaint Patient is 70-year-old female with past medical history of hypertension, hyperlipidemia, tobacco abuse, history of CVA who presented to outside ER due to shortness of breath. She states she has been feeling poorly for roughly 2 weeks and was seen by Kenny Cox at the [facility] and brigitte gnosed with pneumonia. She was started on antibiotics at that time but did not improve. She saw him again and was prescribed steroids and a different antibiotic and continued to cough and feel poorly. On November 29 she suffered a fall on her right side and since then has not been able to cough very well due to pain. She had a home visit from [facility] yesterday evening and was advised to seek care in the emergency department. She had a leukocytosis of 15 which is actually down from 25 a week ago but was hypoxic and they decided to admit for pneumonia due to failing outpatient antibiotics. I received a call this morning from Dr. Levin who saw her in the emergency room and report read 30% right-sided pneumothorax. Source: patient Date Seen 12/05/20 Time Seen by a Provider: 10:04 Attending Physician Titi Vargas MD PCP Rose Mary Krishnan MD Referring Physician Date of Admission Dec 05, 2020 at 01:21 Home Medications & Allergies Home Medications Reviewed patient Home Medication Reconciliation performed by pharmacy medication reconciliations wind turbine technician and/or nursing. Patients Allergies have been reviewed. Allergies Allergies Coded Allergies No Known Drug Allergies ([id number]/9/17) Past Bjzgnrj-Odnian-Pecmil Hx Patient Social History Employed/Student: retired Tobacco Use?: Yes Tobacco type used: Cigarettes Smoking Status: Current Everyday Smoker Smokeless Tobacco Frequency: Never a User Use of E-Cig and/or Vaping dev: No Substance use?: No Alcohol Use?: No Pt feels they are or have been: No Immunizations Up To Date Date of Influenza Vaccine: Nov 27, 2020 First/Initial COVID19 Vaccinat: 2020 Second COVID19 Vaccination [place]: 2020 Date of Pneumonia Vaccine: Feb 24, 2015 Seasonal Allergies Seasonal Allergies: No Current Status status: No status: No Advance Directives: Yes Advance Directive Location: Possiby can be brought by Communicates: Verbally Primary Language: Malay Preferred Spoken Language: Malay Is interpretation needed?: No Sensory deficits: Vision impairment Implanted or Applied Medical D: None Past Medical History Surgeries: Appendectomy, Section, Hysterectomy COPD Heart Attack, Hypertension, Peripheral Vascular Stroke Sexually Transmitted Disease: No HIV/AIDS: No Loss of Vision: Bilateral Hearing Impairment: Denies Adverse Reaction/Blood Tranf: No (N/A) Family Medical History Reviewed Nursing Family Hx No Pertinent Family Hx Review of Systems Constitutional: No chills, No fever; malaise EENTM: no symptoms reported Respiratory: cough, short of breath Cardiovascular: chest pain; No edema Gastrointestinal: no symptoms reported Genitourinary: no symptoms reported Musculoskeletal: no symptoms reported Skin: no symptoms reported Psychiatric/Neurological: No Symptoms Reported Physical Exam Physical Exam Vital Signs Vital Signs - First Documented 12/05/20 12/05/20 01:27 02:16 Temp 36.6 Pulse 100 Resp 22 B/P (MAP) 130/60 (83) Pulse Ox 93 O2 Delivery Nasal Cannula O2 Flow Rate 2.00 FiO2 28 Capillary Refill : Height, Weight, BMI Height: 5'7.00" Weight: 95lbs. 0.0oz. 43.090615qu; 16.21 BMI Method: General Appearance: No Apparent Distress, Cachetic, Thin HEENT: PERRL/EOMI, Moist Mucous Membranes; No Scleral Icterus (L), No Scleral Icterus (R) Neck: Normal Inspection, Supple Respiratory: Lungs Clear, No Respiratory Distress, Other (absent breath sounds on right) Cardiovascular: Regular Rate, Rhythm, No Murmur Gastrointestinal: Normal Bowel Sounds, Non Tender, Soft Extremity: Normal Capillary Refill, No Calf Tenderness, No Pedal Edema Neurologic/Psychiatric: Alert, Oriented x3, Normal Mood/Affect Results Results/Procedures Labs Patient resulted labs reviewed. Imaging: Reviewed Imaging Report [facility] [place], [place] NAME: ATUL SULLIVAN [facility] REC#: [id number] PT STATUS: ADM IN : 1950 PHYSICIAN: JUANITA DOE MD ADMIT DATE: 12/05/20/4TH Draft Date of Exam:12/05/20 CHEST 1 VIEW, AP/PA ONLY INDICATION: Pneumonia, sepsis and pneumothorax. TIME OF EXAM: 8:42 AM Correlation is made with prior chest from 11/24/2016. FINDINGS: Heart size stable. There is a moderate size right-sided pneumothorax, measuring approximately 4.7 cm at the right lung apex. There is a basilar component as well. There appears to be some infiltrates or atelectasis in both bases. Mid and upper lung sarabia are clear. IMPRESSION: 1. Moderate right-sided pneumothorax. 2. Bibasilar infiltrates or atelectasis. Dictated on workstation # [id number] Dict: 12/05/20911 Trans: 12/05/20912 [id number] Interpreted by: JANIS HANSEN MD Electronically signed by: Assessment/Plan Admission Diagnosis Right sided pneumothorax bilateral pneumonia Admission Status: Inpatient Order (span 2 midnights) Reason for Inpatient Admission: see below Assessment and Plan Right sided pneumothorax bilateral pneumonia Continue on IV abx Surgery consulted, appreciate recs- planning for thoravent HTN HLD h/o of CVA Continue home meds BP well controlled Emphysema Active tobacco use MAT protocol Nicotine patch Diagnosis/Problems Diagnosis/Problems (1) Essential (primary) hypertension Status: Chronic (2) HLD (hyperlipidemia) Qualifiers: Hyperlipidemia type: unspecified Qualified Codes: E78.5 - Hyperlipidemia, unspecified (3) Hypoxia Status: Acute (4) Tobacco abuse Status: Chronic (5) Cachexia Status: Chronic (6) Pneumothorax on right Status: Acute (7) Left sided weaness from previous stroke Status: Chronic JUANITA DOE MD Dec 05, 2020 10:09
[2020-12-05 10:38] LABS: HEMATOCRIT 37 % (35-52); MEAN CORPUSCULAR HEMOGLOBIN 33 pg (25-34); MEAN CORPUSCULAR HGB CONC 35 g/dL (32-36); MEAN CORPUSCULAR VOLUME 95 fL (80-99); MEAN PLATELET VOLUME 10.9 fL (9.0-12.2); PLATELET COUNT 362 10^3/uL (130-400); WHITE BLOOD COUNT 17.3 10^3/uL (4.3-11.0)
[2020-12-05 10:55] LABS: CALCIUM 9.3 MG/DL (8.5-10.1); CREATININE SERUM 0.76 MG/DL (0.60-1.30); POTASSIUM 4.2 MMOL/L (3.6-5.0)
[2020-12-05] MEDS ORDERED: METO-333 PO (11:25)
[2020-12-05] MEDS ORDERED: ATOR10TA66 PO (11:25)
[2020-12-05] MEDS ORDERED: PRD20T PO (11:25)
[2020-12-05] MEDS ORDERED: CALC500T64 PO (11:25)
[2020-12-05] MEDS ORDERED: LEVO750T39 PO (11:25)
[2020-12-05] MEDS ORDERED: ALBU2.5V4 NEB (11:25)
[2020-12-05] MEDS ORDERED: LIDOCAINE 1% INJ 20 ML 20 ML VIAL ONE (12:46)
--- NOTE | 2020-12-05 13:24 | Diagnostic Imaging Report ---
Clinical indications: Post-chest tube placement. Exam: Portable chest x-ray upright view. Comparisons: Chest x-ray dated 12/05/2020. Findings: There is interval placement of a small bore chest tube overlying the right lung apex. There is interval decreased size of the right pneumothorax with small right apical pneumothorax remaining. Pneumothorax measures roughly 1.3 cm in thickness. There is interval improved aeration of the right lung. There is otherwise stable bibasilar atelectasis versus infiltrates. There is bilateral apical pleural parenchymal thickening/scarring seen. Pulmonary vasculature and cardiac silhouette are within normal limits. There is left curvature of the thoracic spine. IMPRESSION: 1: There is interval placement of a small bore chest tube overlying the right lung apex. There is interval decrease in the previously seen right pneumothorax with small right apical pneumothorax remaining. 2: There is bibasilar atelectasis versus infiltrate which has slightly decreased on the right. Dictated by: Dictated on workstation # [id number]
[2020-12-05] MEDS ORDERED: LIDOCAINE 1% INJ 20 ML 20 ML VIAL INJ ONE (13:45)
[2020-12-05] MEDS ORDERED: HYDROcodone/APAP 5 MG/325 MG (LORTAB) TAB ONE (13:56)
[2020-12-05] MEDS ORDERED: HYDROcodone/APAP 5 MG/325 MG (LORTAB) TAB PO ONE (14:00)
--- NOTE | 2020-12-05 14:07 | Physical Therapy Evaluation ---
PT Evaluation-General Medical Diagnosis Admission Date Dec 05, 2020 at 01:21 Medical Diagnosis: pneumothorax Onset Date: Dec 05, 2020 Therapy Diagnosis Therapy Diagnosis: impaired mobility, strength, endurance, balance Height/Weight Height (Feet): 5 Height (Inches): 7.00 Weight (Pounds): 95 Weight (Ounces): 0.0 Precautions Precautions/Isolations: Fall Prevention, Standard Precautions Referral Physician: Trav Reason for Referral: Evaluation/Treatment Medical History Additional Medical History Past Medical History Surgeries: Appendectomy, Section, Hysterectomy COPD Heart Attack, Hypertension, Peripheral Vascular Stroke Sexually Transmitted Disease: No HIV/AIDS: No Loss of Vision: Bilateral Reviewed History: Yes Social History Home: Single Level (has basement) Current Living Status: Spouse Entry Into Home: Ramp two steps to enter from the back Prior Prior Level of Function SCALE: Activities may be completed with or without assistive devices. 4-Gyrxdmsfxi-eepwbnf completes the activity by him/herself with no assistance from a helper. 5-Set-up or Clean-up Assistance-helper sets up or cleans up; patient completes activity. [place] assists only prior to or following the activity. 4-Supervision or Touching Assistance-helper provides verbal cues and/or touching/steadying and/or contact guard assistance as patient completes activity. Assistance may be provided throughout the activity or intermittently. 3-Partial/Moderate Assistance-helper does LESS THAN HALF the effort. [place] lifts, holds or supports trunk or limbs, but provides less than half the effort. 2-Substantial/Maximal Assistance-helper does MORE THAN HALF the effort. [place] lifts or holds trunk or limbs and provides more than half the effort. 9-Xsmrgsefj-bgnaji does ALL the effort. Patient does none of the effort to complete the activity. Or, the assistance of 2 or more helpers is required for the patient to complete the activity. If activity was not attempted, code reason: 7-Patient Refused. 9-Not Applicable-not attempted and the patient did not perform the activity before the current illness, exacerbation or injury. 10-Not Attempted due to Environmental Limitations-(lack of equipment, weather restraints, etc.). 88-Not Attempted due to Medical Conditions or Safety Concerns. Bed Mobility: 6 Transfers (B,C,W/C): 6 Gait: 6 Stairs: 6 Indoor Mobility (Ambulation): Independent Stairs: Independent PT Evaluation-Current Subjective Patient in bed pre tx, agrees to PT, has some pain from a procedure done not too long ago Pt/Family Goals to be independent at home Objective Patient Orientation: Person, Place, Situation Attachments: Oxygen ROM/Strength ROM Lower Extremities WNL Strength Lower Extremities LLE (hip flexion 3/5, knee flexion 3/5, knee extension 4/5, dorsiflexion 4/5), RLE (hip flexion 4/5, knee flexion 4/5, knee extension 4/5, dorsiflexion 4/5) Sensory Vision: Wears Glasses Hearing: Functional Sensation Right Lower Extremit: Intact Sensation Left Lower Extremity: Intact Transfers Roll Left to Right (QC): 6 Sit to Lying (QC): 4 Lying to Sitting/Side of Bed(Q: 4 Sit to Stand (QC): 3 Chair/Nih-mi-Vaewn Xfer(QC): 3 Gait Does the Patient Walk?: Yes Mode of Locomotion: Walk Anticipated Mode of Locomotion: Walk Walk 10 feet (QC): 3 Distance: 20' Gait Assistive Device: None Comments/Gait Description Patient ambulated approx 20' without an assistive device with min assist to maintain balance. 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 She would benefit from either using a SPC or platform walker if she can tolerate it. Balance Sitting Static: Normal Sitting Dynamic: Normal Standing Static: Poor Standing Dynamic: Poor Treatment BLE supine exercises x20 (AP, HS) Assessment/Needs Patient in bed post tx with nurse call, phone, tray, all needs met. Patient has impaired mobility, strength, endurance, balance. Needs min assist to maintain balance during ambulation. Rehab Potential: Fair PT Skilled Nursing Goals Guest Service Aide Goals PT Skilled Nursing Goals Time Frame: Dec 12, 2020 Roll Left & Right (QC): 6 Sit to Lying (QC): 6 Lying-Sitting on Side/Bed(QC): 6 Sit to Stand (QC): 4 Chair/Lxe-oz-Ctczf Xfer(QC): 4 Walk 10 feet (QC): 4 Walk 50ft with 2 Turns (QC): 4 PT Plan Problem List Problem List: Activity Tolerance, Functional Strength, Safety, Balance, Gait, Transfer, Bed Mobility, ROM Treatment/Plan Treatment Plan: Continue Plan of Care Treatment Plan: Bed Mobility, Education, Functional Activity Toni, Functional Strength, Gait, Safety, Therapeutic Exercise, Transfers Treatment Duration: Dec 12, 2020 Frequency: 6 times per week Estimated Hrs Per Day: .25 hour per day Patient and/or Family Agrees t: Yes Safety Risks/Education Patient Education: Gait Training, Transfer Techniques, Correct Positioning, Safety Issues Teaching Recipient: Patient Teaching Methods: Demonstration, Discussion Response to Teaching: Reinforcement Needed Discharge Recommendations Plan Patient will perform bed mobility and transfer training, balance and endurance training, functional strengthening, stair training, gait training, and education, to improve functional mobility and independence at home. Therapy Discharge Recommendati: Scheduled Assistance, Home & Family, Post Acute PT Time/GCodes Time In: 1338 Time Out: 1352 Total Billed Treatment Time: 14 Total Billed Treatment 1 visit IRENE CHRIS PT Dec 05, 2020 14:07
[2020-12-05] MEDS: LACTOBACILLUS ACIDOPHILUS (PROBIOTIC) CAPSULE PO SCH ×2 (15:01→17:24)
[2020-12-05] MEDS ORDERED: RT-ALBUTEROL SULF 2.5 MG/3 ML PRE-MIX VIAL IH PRN (18:45)
[2020-12-05] MEDS: meTOprolol TARTRATE 25 MG (LOPRESSOR) TABLET PO SCH (20:43)
[2020-12-05] MEDS: AtorvaSTATin TABLET 10 MG TABLET PO SCH (20:43)
[2020-12-05] MEDS: amLODIPine 5 MG (NORVASC) TAB PO SCH (20:44)
[2020-12-05] MEDS: AZITHROMYCIN INJECTION 250 MG in NS (IVPB) 250 ML IV SCH (21:00)
[2020-12-06] MEDS: cefTRIAXone 1,000 MG in WATER (STERILE) FOR INJECTION 10 ML IV SCH (02:49)
[2020-12-06 03:28] VITALS: BP 124/59
[2020-12-06] MEDS: ACETAMINOPHEN 500 MG TAB (TYLENOL) PO PRN ×3 (04:27→17:04)
[2020-12-06 06:22] LABS: HEMATOCRIT 40 % (35-52); HEMOGLOBIN 13.4 g/dL (11.5-16.0); MEAN CORPUSCULAR HEMOGLOBIN 33 pg (25-34); MEAN CORPUSCULAR HGB CONC 34 g/dL (32-36); MEAN CORPUSCULAR VOLUME 99 fL (80-99); MEAN PLATELET VOLUME 10.5 fL (9.0-12.2); PLATELET COUNT 350 10^3/uL (130-400)
[2020-12-06 06:33] LABS: POTASSIUM 4.2 MMOL/L (3.6-5.0)
[2020-12-06 06:34] LABS: CALCIUM 8.7 MG/DL (8.5-10.1)
[2020-12-06 06:38] LABS: CREATININE SERUM 0.67 MG/DL (0.60-1.30)
--- NOTE | 2020-12-06 06:55 | Progress Note - Surgery ---
PHILL BUTLER 12/06/20 0655: Subjective Time Seen by a Provider: 07:00 Subjective/Events-last exam Pt reports to breathing a lot better, her pain from her fall still bothers her. Right sided chest tube was put in place yesterday which seems to have helped her along with the antibiotics. Review of Systems General: No Chills HEENT: No Head Aches; Sore Throat Pulmonary: Cough Cardiovascular: No: Chest Pain, Palpitations Gastrointestinal: No: Nausea, Vomiting, Abdominal Pain Objective Exam Vital Signs Date Time Temp Pulse Resp B/P (MAP) Pulse Ox O2 Delivery O2 Flow Rate FiO2 12/06/20 03:28 36.6 61 20 124/59 (80) 93 Nasal Cannula 2.00 12/05/20 23:36 36.3 65 20 128/60 (82) 98 Nasal Cannula 2.00 12/05/20 19:44 93 Nasal Cannula 2.00 12/05/20 19:40 95 Nasal Cannula 2.00 12/05/20 19:21 36.2 70 20 116/54 (74) 95 Nasal Cannula 2.00 12/05/20 16:04 94 Nasal Cannula 2.00 12/05/20 15:51 36.4 66 20 115/56 (75) 94 Nasal Cannula 2.00 12/05/20 11:43 36.6 78 18 160/67 (98) 90 Nasal Cannula 2.00 12/05/20 10:51 95 Nasal Cannula 2.00 12/05/20 08:53 94 Nasal Cannula 2.00 12/05/20 08:12 95 Nasal Cannula 2.50 12/05/20 07:17 36.6 75 20 111/55 (73) 94 Nasal Cannula 2.00 I & O 12/06/20 07:00 Intake Total 2110 ml Output Total 900 ml Balance 1210 ml Capillary Refill : General Appearance: No Apparent Distress, Thin HEENT: PERRL/EOMI Neck: Normal Inspection, Supple Respiratory: Lungs Clear, No Accessory Muscle Use, No Respiratory Distress, Other (breath sounds on the right have improved since yesterday) Cardiovascular: Regular Rate, Rhythm, No Murmur Gastrointestinal: normal bowel sounds, non tender, soft Extremity: Normal Capillary Refill, No Calf Tenderness, No Pedal Edema Neurologic/Psychiatric: Alert, Oriented x3, Normal Mood/Affect Results Lab Laboratory Tests 12/05/20 10:25: White Blood Count 17.3H, Red Blood Count 3.90, Hemoglobin 13.0, Hematocrit 37, Mean Corpuscular Volume 95, Mean Corpuscular Hemoglobin 33, Mean Corpuscular Hemoglobin Concent 35, Red Cell Distribution Width 14.5, Platelet Count 362, Mean Platelet Volume 10.9, Sodium Level 130L, Potassium Level 4.2, Chloride [place] 98, Carbon Dioxide Level 20L, Anion Gap 12, Blood Urea Nitrogen 19H, Creatinine 0.76, Estimat Glomerular Filtration Rate 75, BUN/Creatinine Ratio 25, Glucose Level 106H, Calcium Level 9.3 12/06/20 06:10: White Blood Count 14.0H, Red Blood Count 4.05, Hemoglobin 13.4, Hematocrit 40, Mean Corpuscular Volume 99, Mean Corpuscular Hemoglobin 33, Mean Corpuscular Hemoglobin Concent 34, Red Cell Distribution Width 14.9H, Platelet Count 350, Mean Platelet Volume 10.5, Sodium Level 136, Potassium Level 4.2, Chloride Level 105, Carbon Dioxide Level 21, Anion Gap 10, Blood Urea Nitrogen 15, Creatinine 0.67, Estimat Glomerular Filtration Rate 87, BUN/Creatinine Ratio 22, Glucose Level 84, Calcium Level 8.7 Microbiology 12/05/20 Gram Stain - Final, Resulted 12/05/20 Sputum Culture, Resulted Pending Assessment/Plan Assessment/Plan Assessment/Plan Pneumothorax right side B/L pneumonia HTN Low BMI Treat the patient with oxygen and antibiotics. Monitor her oxygen saturation and maintain proper nutrition as she is underweight. Chest tube placed in yesterday has improved her breathing, will continue to monitor her pneumothorax. Ordered another CXR today. FENG ALCANTARA DO 12/06/20 1415: Subjective Subjective/Events-last exam Patient is breathing better today. Still slight shortness of breath. Not having as much discomfort when breathing as well. She is still has cough. Chest x-ray reviewed demonstrating resolution of right pneumothorax with thoracostomy tube in place (Thoravent). Denies nausea vomiting fever sweats chills or chest pain at this time. Objective Exam General Appearance: No Apparent Distress, Thin HEENT: PERRL/EOMI, Normal ENT Inspection Neck: Normal Inspection, Supple Respiratory: Chest Non Tender, No Accessory Muscle Use, No Respiratory Distress, Other (right thoravent in place) Cardiovascular: Regular Rate, Rhythm, No JVD Gastrointestinal: non tender, soft Extremity: Normal Capillary Refill, Non Tender Neurologic/Psychiatric: Alert, Oriented x3, Normal Mood/Affect Skin: Normal Color, Warm/Dry Lymphatic: No Adenopathy Assessment/Plan Assessment/Plan Assessment/Plan Pneumothorax right side B/L pneumonia HTN Low BMI Thoravent in place no pneumothorax on x ray today repeat chest x ray in am for comparison continue abx Supervisory-Addendum Brief Verification & Attestation Participated in pt care: history, MDM, physical Personally performed: exam, history, MDM, supervision of care Care discussed with: Medical Student Procedures: n/a Results interpretation: Verified all documentation Verification and Attestation of Medical Student E/M Service A medical student performed and documented this service in my presence. I reviewed and verified all information documented by the medical student and made modifications to such information, when appropriate. I personally performed the physical exam and medical decision making. Feng Alcantara, Dec 06, 2020,14:14 PHILL BUTLER Dec 06, 2020 06:55 FENG ALCANTARA DO Dec 06, 2020 14:15
[2020-12-06] MEDS: RT-ALBUTEROL/IPRATROPIUM 3 ML (DUONEB) VIAL INH SCH ×4 (07:37→19:15)
[2020-12-06] MEDS: lisINopril 20 MG (PRINIVIL) TABLET PO SCH (08:32)
[2020-12-06] MEDS: CALCIUM CARBONATE 500 MG (TUMS) TAB.CHEW PO SCH (08:32)
[2020-12-06] MEDS: ASPIRIN E.C. 81 MG (ECOTRIN) TAB PO SCH (08:32)
[2020-12-06] MEDS: LACTOBACILLUS ACIDOPHILUS (PROBIOTIC) CAPSULE PO SCH ×3 (08:33→18:08)
[2020-12-06] MEDS: NICOTINE PATCH REMOVAL TP SCH (08:33)
[2020-12-06] MEDS: meTOprolol TARTRATE 25 MG (LOPRESSOR) TABLET PO SCH ×2 (08:33→19:39)
[2020-12-06 08:34] VITALS: BP 137/62
[2020-12-06] MEDS: NICOTINE 21 MG (NICODERM) PATCH TD SCH (08:40)
[2020-12-06 11:23] VITALS: BP 132/66
--- NOTE | 2020-12-06 11:37 | Progress Note - Hospitalist ---
Subjective HPI/CC On Admission Date Seen by Provider: Dec 06, 2020 Time Seen by Provider: 11:35 Patient is 70-year-old female with past medical history of hypertension, hyperlipidemia, tobacco abuse, history of CVA who presented to outside ER due to shortness of breath. She states she has been feeling poorly for roughly 2 weeks and was seen by Kenny Cox at the [facility] and diagnosed with pneumonia. She was started on antibiotics at that time but did not improve. She saw him again and was prescribed steroids and a different antibiotic and continued to cough and feel poorly. On November 29 she suffered a fall on her right side and since then has not been able to cough very well due to pain. She had a home visit from [facility] yesterday evening and was advised to seek care in the emergency department. She had a leukocytosis of 15 which is actually down from 25 a week ago but was hypoxic and they decided to admit for pneumonia due to failing outpatient antibiotics. I received a call this morning from Dr. Levin who saw her in the emergency room and report read 30% right-sided pneumothorax. Subjective/Events-last exam Pt reports feeling better and breathing better today. s/p Thoravent yesterday and pain controlled. Objective Exam Vital Signs Vital Signs Date Time Temp Pulse Resp B/P (MAP) Pulse Ox O2 Delivery O2 Flow Rate FiO2 12/06/20 11:23 36.6 65 20 132/66 (88) 91 Nasal Cannula 2.00 12/05/20 02:16 28 Capillary Refill : General Appearance: No Apparent Distress, Chronically ill, Cachetic Respiratory: Lungs Clear, No Respiratory Distress, Other (thoravent) Cardiovascular: Regular Rate, Rhythm, No Murmur Neurologic/Psychiatric: Alert, Oriented x3 Results/Procedures Lab Laboratory Tests 12/06/20 06:10 Patient resulted labs reviewed. Imaging: Reviewed Imaging Report Assessment/Plan Assessment and Plan Assess & Plan/Chief Complaint Right sided pneumothorax bilateral pneumonia Continue on IV abx Surgery consulted, appreciate recs- planning for thoravent repaet CXR pending HTN HLD h/o of CVA Continue home meds BP well controlled Emphysema Active tobacco use MAT protocol Nicotine patch Diagnosis/Problems Diagnosis/Problems (1) Essential (primary) hypertension Status: Chronic (2) HLD (hyperlipidemia) Qualifiers: Hyperlipidemia type: unspecified Qualified Codes: E78.5 - Hyperlipidemia, unspecified (3) Hypoxia Status: Acute (4) Tobacco abuse Status: Chronic (5) Cachexia Status: Chronic (6) Pneumothorax on right Status: Acute (7) Left sided 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
--- NOTE | 2020-12-06 11:53 | Diagnostic Imaging Report ---
EXAMINATION: Chest 1 view HISTORY: Pneumonia COMPARISON: 12/05/2020 FINDINGS: Heart size and pulmonary vasculature are normal stable. Stable right pleural effusion with bibasilar atelectasis or consolidation. Stable catheter overlying the right chest. No pneumothorax is seen on today's exam. The osseous structures are intact. IMPRESSION: 1. No pneumothorax is seen on today's exam. 2. Bilateral pleural effusions with adjacent atelectasis or consolidation. Dictated by: Dictated on workstation # [id number]
--- NOTE | 2020-12-06 12:25 | Physical Therapy Daily Note ---
PT Daily Note-Current Subjective Pt is in bed and agreeable to treatment. Mental Status Patient Orientation: Person, Place, Time, Situation Attachments: Oxygen Transfers SCALE: Activities may be completed with or without assistive devices. 9-Kgkuecgvph-yanbzlg completes the activity by him/herself with no assistance from a helper. 5-Set-up or Clean-up Assistance-helper sets up or cleans up; patient completes activity. [place] assists only prior to or following the activity. 4-Supervision or Touching Assistance-helper provides verbal cues and/or touching/steadying and/or contact guard assistance as patient completes activity. Assistance may be provided throughout the activity or intermittently. 3-Partial/Moderate Assistance-helper does LESS THAN HALF the effort. [place] lifts, holds or supports trunk or limbs, but provides less than half the effort. 2-Substantial/Maximal Assistance-helper does MORE THAN HALF the effort. [place] lifts or holds trunk or limbs and provides more than half the effort. 3-Brsbeiqoa-pdlmkw does ALL the effort. Patient does none of the effort to complete the activity. Or, the assistance of 2 or more helpers is required for the patient to complete the activity. If activity was not attempted, code reason: 7-Patient Refused. 9-Not Applicable-not attempted and the patient did not perform the activity before the current illness, exacerbation or injury. 10-Not Attempted due to Environmental Limitations-(lack of equipment, weather restraints, etc.). 88-Not Attempted due to Medical Conditions or Safety Concerns. Roll Left & Right (QC): 4 Sit to Lying (QC): 4 Lying to Sitting/Side of Bed(Q: 4 Sit to Stand (QC): 4 Chair/Cwr-nl-Xrzmm Xfer(QC): 4 Gait Training Does the Patient Walk?: Yes Distance: 180ft Walk 10 feet (QC): 5 Walk 50 ft with 2 Turns(QC): 5 Walk 150 ft (QC): 5 Gait Persons Needed: 1 Gait Assistive Device: None Pt ambulated safely with good turns and transfers. Assessment Current Status: Good Progress Safe mobility observed today. PT Deputy Head Goals Deputy Head Goals PT Deputy Head Goals Time Frame: Dec 12, 2020 Roll Left & Right (QC): 6 Sit to Lying (QC): 6 Lying-Sitting on Side/Bed(QC): 6 Sit to Stand (QC): 4 Chair/Wpz-nj-Wyebw Xfer(QC): 4 Walk 10 feet (QC): 4 Walk 50ft with 2 Turns (QC): 4 PT Plan Treatment/Plan Treatment Plan: Continue Plan of Care Treatment Plan: Bed Mobility, Education, Functional Activity Toni, Functional Strength, Gait, Safety, Therapeutic Exercise, Transfers Treatment Duration: Dec 12, 2020 Frequency: 6 times per week Estimated Hrs Per Day: .25 hour per day Patient and/or Family Agrees t: Yes Time/GCodes Time In: 856 Time Out: 909 Total Billed Treatment Time: 13 Total Billed Treatment 1, gt 13 PINKY TROTTER PT Dec 06, 2020 12:25
[2020-12-06 16:00] VITALS: BP 151/70
[2020-12-06] MEDS: amLODIPine 5 MG (NORVASC) TAB PO SCH (19:39)
[2020-12-06] MEDS: AtorvaSTATin TABLET 10 MG TABLET PO SCH (19:39)
[2020-12-06 20:00] VITALS: BP 143/65
[2020-12-06] MEDS: AZITHROMYCIN INJECTION 250 MG in NS (IVPB) 250 ML IV SCH (20:26)
[2020-12-06 23:34] VITALS: BP 128/62
[2020-12-07] MEDS: cefTRIAXone 1,000 MG in WATER (STERILE) FOR INJECTION 10 ML IV SCH (02:20)
[2020-12-07 04:34] VITALS: BP 138/65
[2020-12-07 05:54] LABS: HEMATOCRIT 38 % (35-52); HEMOGLOBIN 13.1 g/dL (11.5-16.0); MEAN CORPUSCULAR HEMOGLOBIN 33 pg (25-34); MEAN CORPUSCULAR HGB CONC 34 g/dL (32-36); MEAN CORPUSCULAR VOLUME 97 fL (80-99); MEAN PLATELET VOLUME 10.3 fL (9.0-12.2); PLATELET COUNT 403 10^3/uL (130-400); WHITE BLOOD COUNT 13.5 10^3/uL (4.3-11.0)
[2020-12-07 06:04] LABS: POTASSIUM 4.4 MMOL/L (3.6-5.0)
[2020-12-07 06:05] LABS: CALCIUM 8.9 MG/DL (8.5-10.1)
[2020-12-07 06:09] LABS: CREATININE SERUM 0.61 MG/DL (0.60-1.30)
[2020-12-07 07:20] VITALS: BP 128/77
[2020-12-07] MEDS: RT-ALBUTEROL/IPRATROPIUM 3 ML (DUONEB) VIAL INH SCH ×4 (07:42→18:57)
--- NOTE | 2020-12-07 07:47 | Progress Note - Surgery ---
PHILL BUTLER 12/07/20 0747: Subjective Time Seen by a Provider: 07:15 Subjective/Events-last exam Pt reports breathing a lot better, is still coughing but without mucus. She denies CP, heart palpations, N/V, constipation, diarrhea, fever or chills. CXR on 12/07: 1. Stable tiny right apical pneumothorax with 3 mm of pleural separation. 2. Stable right pleural effusion with bibasilar atelectasis or consolidation. Objective Exam Vital Signs Date Time Temp Pulse Resp B/P (MAP) Pulse Ox O2 Delivery O2 Flow Rate FiO2 12/07/20 07:20 36.5 64 18 128/77 (94) 95 Nasal Cannula 2.00 12/07/20 04:34 37.0 62 20 138/65 (89) 96 Nasal Cannula 2.00 12/06/20 23:34 36.5 63 20 128/62 (84) 97 Nasal Cannula 2.00 12/06/20 20:00 36.4 70 20 143/65 (91) 93 Nasal Cannula 2.00 12/06/20 19:40 94 Nasal Cannula 2.00 12/06/20 19:15 94 Nasal Cannula 2.00 95 12/06/20 16:00 36.5 65 18 151/70 (97) 96 Nasal Cannula 2.00 12/06/20 15:19 94 Nasal Cannula 2.00 12/06/20 11:23 36.6 65 20 132/66 (88) 91 Nasal Cannula 2.00 12/06/20 10:59 94 Nasal Cannula 2.00 12/06/20 08:34 36.4 67 20 137/62 (87) 95 Nasal Cannula 2.00 12/06/20 08:00 95 Nasal Cannula 2.00 I & O 12/07/20 07:00 Intake Total 1970 ml Output Total 2200 ml Balance -230 ml Capillary Refill : General Appearance: No Apparent Distress, Thin HEENT: PERRL/EOMI, Normal ENT Inspection Neck: Normal Inspection, Supple Respiratory: Chest Non Tender, No Accessory Muscle Use, No Respiratory Distress, Other (Right lung more clear than two days ago, thoravent on right side) Cardiovascular: Regular Rate, Rhythm, No JVD Gastrointestinal: non tender, soft Extremity: Normal Capillary Refill, Non Tender Neurologic/Psychiatric: Alert, Oriented x3, Normal Mood/Affect Skin: Normal Color, Warm/Dry Lymphatic: No Adenopathy Results Lab Laboratory Tests 12/07/20 05:46: White Blood Count 13.5H, Red Blood Count 3.94, Hemoglobin 13.1, Hematocrit 38, Mean Corpuscular Volume 97, Mean Corpuscular Hemoglobin 33, Mean Corpuscular Hemoglobin Concent 34, Red Cell Distribution Width 14.7H, Platelet Count 403H, Mean Platelet Volume 10.3, Sodium Level 136, Potassium Level 4.4, Chloride Level 105, Carbon Dioxide Level 22, Anion Gap 9, Blood Urea Nitrogen 10, Creatinine 0.61, Estimat Glomerular Filtration Rate 97, BUN/Creatinine Ratio 16, Glucose Level 85, Calcium Level 8.9 Microbiology 12/05/20 Gram Stain - Final, Resulted 12/05/20 Sputum Culture - Preliminary, Resulted Usual upper respiratory walter Assessment/Plan Assessment/Plan Assessment/Plan Pneumothorax right side B/L pneumonia HTN Low BMI Thoravent in place until pneumothorax resolves. continue antibiotics. FENG ALCANTARA DO 12/07/20 1121: Subjective Subjective/Events-last exam Patient breathing better. She is feeling better as well. Patient states that still with little bit of mucus coming up. Patient chest x-ray demonstrating a small apical right pneumothorax. Still has valve fluctuation on the Thora vent. Patient denies nausea vomiting fever sweats chills shortness of breath or chest pain at this time. Objective Exam General Appearance: No Apparent Distress, Chronically ill HEENT: PERRL/EOMI, Normal ENT Inspection Neck: Normal Inspection, Supple Respiratory: Chest Non Tender, No Accessory Muscle Use, No Respiratory Distress Cardiovascular: Regular Rate, Rhythm, No JVD Gastrointestinal: non tender, soft Extremity: Normal Capillary Refill, Non Tender Neurologic/Psychiatric: Alert, Oriented x3, Normal Mood/Affect Skin: Normal Color, Warm/Dry Lymphatic: No Adenopathy Assessment/Plan Assessment/Plan Assessment/Plan Pneumothorax right side B/L pneumonia HTN Low BMI Thoravent in place until pneumothorax resolves. continue antibiotics. Supervisory-Addendum Brief Verification & Attestation Participated in pt care: history, MDM, physical Personally performed: exam, history, MDM, supervision of care Care discussed with: Medical Student Procedures: n/a Results interpretation: Verified all documentation Verification and Attestation of Medical Student E/M Service A medical student performed and documented this service in my presence. I reviewed and verified all information documented by the medical student and made modifications to such information, when appropriate. I personally performed the physical exam and medical decision making. Feng Alcantara, Dec 07, 2020,11:21 PHILL BUTLER Dec 07, 2020 07:47 FENG ALCANTARA DO Dec 07, 2020 11:21
--- NOTE | 2020-12-07 07:58 | Diagnostic Imaging Report ---
EXAMINATION: Chest 1 view HISTORY: Pneumothorax follow-up COMPARISON: 12/03/2020 FINDINGS: Heart size and pulmonary vasculature are stable. Stable tiny right apical pneumothorax with 3 mm of pleural separation. Right-sided chest tube is unchanged. Stable right pleural effusion with bibasilar atelectasis or consolidation. Degenerative changes of the thoracic spine. Osseous structures are otherwise intact. IMPRESSION: 1. Stable tiny right apical pneumothorax with 3 mm of pleural separation. 2. Stable right pleural effusion with bibasilar atelectasis or consolidation. Dictated by: Dictated on workstation # [id number]
[2020-12-07] MEDS: CALCIUM CARBONATE 500 MG (TUMS) TAB.CHEW PO SCH (09:02)
[2020-12-07] MEDS: lisINopril 20 MG (PRINIVIL) TABLET PO SCH (09:02)
[2020-12-07] MEDS: LACTOBACILLUS ACIDOPHILUS (PROBIOTIC) CAPSULE PO SCH ×3 (09:02→18:36)
[2020-12-07] MEDS: NICOTINE 21 MG (NICODERM) PATCH TD SCH (09:02)
[2020-12-07] MEDS: ASPIRIN E.C. 81 MG (ECOTRIN) TAB PO SCH (09:02)
[2020-12-07] MEDS: meTOprolol TARTRATE 25 MG (LOPRESSOR) TABLET PO SCH ×2 (09:05→20:17)
[2020-12-07] MEDS: NICOTINE PATCH REMOVAL TP SCH (09:07)
--- NOTE | 2020-12-07 10:53 | Progress Note - Hospitalist ---
Subjective HPI/CC On Admission Date Seen by Provider: Dec 07, 2020 Time Seen by Provider: 10:50 Patient is 70-year-old female with past medical history of hypertension, hyperlipidemia, tobacco abuse, history of CVA who presented to outside ER due to shortness of breath. She states she has been feeling poorly for roughly 2 weeks and was seen by Kenny Cox at the [facility] and diagnosed with pneumonia. She was started on antibiotics at that time but did not improve. She saw him again and was prescribed steroids and a different antibiotic and continued to cough and feel poorly. On November 29 she suffered a fall on her right side and since then has not been able to cough very well due to pain. She had a home visit from [facility] yesterday evening and was advised to seek care in the emergency department. She had a leukocytosis of 15 which is actually down from 25 a week ago but was hypoxic and they decided to admit for pneumonia due to failing outpatient antibiotics. I received a call this morning from Dr. Levin who saw her in the emergency room and report read 30% right-sided pneumothorax. Subjective/Events-last exam Pt reports doing well. Just out of the bathroom. No complaints. Breathing is better. Objective Exam Vital Signs Vital Signs Date Time Temp Pulse Resp B/P (MAP) Pulse Ox O2 Delivery O2 Flow Rate FiO2 12/07/20 10:29 95 Nasal Cannula 2.00 12/07/20 07:20 36.5 64 18 128/77 (94) 12/06/20 19:15 95 Capillary Refill : General Appearance: No Apparent Distress, Chronically ill, Thin Respiratory: Lungs Clear, No Respiratory Distress Cardiovascular: Regular Rate, Rhythm, No Murmur Neurologic/Psychiatric: Alert, Oriented x3 Results/Procedures Lab Laboratory Tests 12/07/20 05:46 Patient resulted labs reviewed. Imaging: Reviewed Imaging Report Assessment/Plan Assessment and Plan Assess & Plan/Chief Complaint Right sided pneumothorax bilateral pneumonia Continue on IV abx for pna Surgery consulted, appreciate recs- s/p thoravent repeat CXR shows small 3mm pneumothorax HTN HLD h/o of CVA Continue home meds BP well controlled Emphysema Active tobacco use MAT protocol Nicotine patch prn DVT ppx: Lovenox Diagnosis/Problems Diagnosis/Problems (1) Essential (primary) hypertension Status: Chronic (2) HLD (hyperlipidemia) Qualifiers: Hyperlipidemia type: unspecified Qualified Codes: E78.5 - Hyperlipidemia, unspecified (3) Hypoxia Status: Acute (4) Tobacco abuse Status: Chronic (5) Cachexia Status: Chronic (6) Pneumothorax on right Status: Acute (7) Left sided weaness from previous stroke Status: Chronic JUANITA DOE MD Dec 07, 2020 10:53
[2020-12-07] MEDS: ENOXAPARIN 30 MG/0.3 ML (LOVENOX) SYR SQ SCH (11:28)
[2020-12-07] MEDS: ACETAMINOPHEN 325 MG TABLET PO PRN ×2 (11:29→22:15)
[2020-12-07 11:45] VITALS: BP 140/66
[2020-12-07 16:05] VITALS: BP 143/72
[2020-12-07 20:06] VITALS: BP 154/76
[2020-12-07] MEDS: AZITHROMYCIN INJECTION 250 MG in NS (IVPB) 250 ML IV SCH (20:17)
[2020-12-07] MEDS: AtorvaSTATin TABLET 10 MG TABLET PO SCH (20:17)
[2020-12-07] MEDS: amLODIPine 5 MG (NORVASC) TAB PO SCH (20:17)
[2020-12-07 23:30] VITALS: BP 147/73
[2020-12-08] MEDS: cefTRIAXone 1,000 MG in WATER (STERILE) FOR INJECTION 10 ML IV SCH (02:20)
[2020-12-08 04:00] VITALS: BP 145/76
[2020-12-08 06:22] LABS: HEMATOCRIT 39 % (35-52); MEAN CORPUSCULAR HEMOGLOBIN 33 pg (25-34); MEAN CORPUSCULAR HGB CONC 34 g/dL (32-36); MEAN CORPUSCULAR VOLUME 97 fL (80-99); MEAN PLATELET VOLUME 10.2 fL (9.0-12.2); PLATELET COUNT 457 10^3/uL (130-400); WHITE BLOOD COUNT 12.6 10^3/uL (4.3-11.0)
[2020-12-08 06:34] LABS: POTASSIUM 4.3 MMOL/L (3.6-5.0)
[2020-12-08 06:35] LABS: CALCIUM 8.9 MG/DL (8.5-10.1)
[2020-12-08] MEDS: RT-ALBUTEROL/IPRATROPIUM 3 ML (DUONEB) VIAL INH SCH ×4 (06:37→18:47)
[2020-12-08 06:40] LABS: CREATININE SERUM 0.68 MG/DL (0.60-1.30)
--- NOTE | 2020-12-08 07:17 | Progress Note - Surgery ---
PHILL BUTLER 12/08/20 0717: Subjective Time Seen by a Provider: 07:15 Subjective/Events-last exam Pt is feeling a little better breathing today. Coughing some mucus. Denies CP, heart palpation, N/V, constipation, diarrhea, fever, chills, or belly pain. Objective Exam Vital Signs Date Time Temp Pulse Resp B/P (MAP) Pulse Ox O2 Delivery O2 Flow Rate FiO2 12/08/20 06:37 2.00 12/08/20 04:00 36.2 61 18 145/76 (99) 97 Nasal Cannula 2.00 12/07/20 23:30 36.4 75 18 147/73 (97) 99 Nasal Cannula 2.00 12/07/20 20:20 94 Nasal Cannula 2.00 12/07/20 20:06 36.6 81 18 154/76 (102) 94 Nasal Cannula 2.00 12/07/20 18:57 92 Nasal Cannula 2.00 12/07/20 16:05 37.2 90 16 143/72 (95) 92 Nasal Cannula 2.00 12/07/20 15:11 95 Nasal Cannula 2.00 12/07/20 11:45 36.5 71 20 140/66 (90) 98 Nasal Cannula 2.00 12/07/20 10:29 95 Nasal Cannula 2.00 12/07/20 08:00 95 Nasal Cannula 2.00 12/07/20 07:43 93 Nasal Cannula 2.00 12/07/20 07:20 36.5 64 18 128/77 (94) 95 Nasal Cannula 2.00 I & O 12/08/20 07:00 Intake Total 2140 ml Output Total 2900 ml Balance -760 ml Capillary Refill : General Appearance: No Apparent Distress, Chronically ill, Thin HEENT: PERRL/EOMI, Normal ENT Inspection Neck: Normal Inspection, Supple Respiratory: Chest Non Tender, No Accessory Muscle Use, No Respiratory Distress, Other (thoravent on right side) Cardiovascular: Regular Rate, Rhythm, No JVD Gastrointestinal: non tender, soft Extremity: Normal Capillary Refill, Non Tender Neurologic/Psychiatric: Alert, Oriented x3, Normal Mood/Affect Skin: Normal Color, Warm/Dry Lymphatic: No Adenopathy Results Lab Laboratory Tests 12/08/20 05:45: White Blood Count 12.6H, Red Blood Count 3.97, Hemoglobin 13.0, Hematocrit 39, Mean Corpuscular Volume 97, Mean Corpuscular Hemoglobin 33, Mean Corpuscular Hemoglobin Concent 34, Red Cell Distribution Width 14.5, Platelet Count 457H, Mean Platelet Volume 10.2, Sodium Level 138, Potassium Level 4.3, Chloride Level 104, Carbon Dioxide Level 24, Anion Gap 10, Blood Urea Nitrogen 13, Creatinine 0.68, Estimat Glomerular Filtration Rate 85, BUN/Creatinine Ratio 19, Glucose Level 93, Calcium Level 8.9 Microbiology 12/05/20 Gram Stain - Final, Complete 12/05/20 Sputum Culture - Final, Complete Usual upper respiratory walter Assessment/Plan Assessment/Plan Assessment/Plan Pneumothorax right side B/L pneumonia HTN Low BMI Thoravent in place until pneumothorax resolves. continue antibiotics. FENG ALCANTARA DO 12/08/202302: Subjective Date Seen by a Provider: Dec 08, 2020 Subjective/Events-last exam Patient is doing okay. Patient still coughing some production. Patient breathing better each day. Some slight discomfort where the thoracostomy tube is. Denies no other complaints at this time. Denies nausea vomiting fever sweats chills shortness of breath or chest pain Chest x-ray demonstrating small right apical pneumo Objective Exam General Appearance: No Apparent Distress, Chronically ill, Thin HEENT: PERRL/EOMI, Normal ENT Inspection Neck: Normal Inspection, Supple Respiratory: Chest Non Tender, No Accessory Muscle Use, No Respiratory Distress, Other (thoravent on right side) Cardiovascular: Regular Rate, Rhythm, No JVD Gastrointestinal: non tender, soft Extremity: Normal Capillary Refill, Non Tender, No Calf Tenderness Neurologic/Psychiatric: Alert, Oriented x3, Normal Mood/Affect Skin: Normal Color, Warm/Dry Lymphatic: No Adenopathy Assessment/Plan Assessment/Plan Assessment/Plan Pneumothorax right side B/L pneumonia HTN Low BMI Thoravent in place until pneumothorax resolves. Repeat chest x ray in am. continue management of b/l pneumonia . Supervisory-Addendum Brief Verification & Attestation Participated in pt care: history, MDM, physical Personally performed: exam, history, MDM, supervision of care Care discussed with: Medical Student Procedures: n/a Results interpretation: Verified all documentation Verification and Attestation of Medical Student E/M Service A medical student performed and documented this service in my presence. I reviewed and verified all information documented by the medical student and made modifications to such information, when appropriate. I personally performed the physical exam and medical decision making. Feng Alcantara, Dec 08, 2020,23:03 PHILL BUTLER Dec 08, 2020 07:17 FENG ALCANTARA DO Dec 08, 2020 23:03
[2020-12-08 07:50] VITALS: BP 179/84
[2020-12-08 08:05] VITALS: BP 157/78
[2020-12-08] MEDS: lisINopril 20 MG (PRINIVIL) TABLET PO SCH (08:15)
[2020-12-08] MEDS: ASPIRIN E.C. 81 MG (ECOTRIN) TAB PO SCH (08:15)
[2020-12-08] MEDS: CALCIUM CARBONATE 500 MG (TUMS) TAB.CHEW PO SCH (08:15)
[2020-12-08] MEDS: meTOprolol TARTRATE 25 MG (LOPRESSOR) TABLET PO SCH ×2 (08:15→21:04)
[2020-12-08] MEDS: LACTOBACILLUS ACIDOPHILUS (PROBIOTIC) CAPSULE PO SCH ×3 (08:15→18:30)
[2020-12-08] MEDS: NICOTINE PATCH REMOVAL TP SCH (08:16)
[2020-12-08] MEDS: NICOTINE 21 MG (NICODERM) PATCH TD SCH (08:16)
[2020-12-08 12:29] VITALS: BP 167/70
--- NOTE | 2020-12-08 12:33 | Diagnostic Imaging Report ---
INDICATION: Followup pneumonia. TIME OF EXAM: 9:40 AM Correlation is made with prior chest from 12/07/2020. Heart size stable. Small right pleural effusion with bibasilar infiltrates or atelectasis show no real change. Right-sided chest tube remains in place. Tiny right apical pneumothorax appears similar to prior study. IMPRESSION: Stable tiny right apical pneumothorax with stable bibasilar infiltrate/atelectasis and trace right pleural effusion. Dictated by: Dictated on workstation # [id number]
[2020-12-08] MEDS: ENOXAPARIN 30 MG/0.3 ML (LOVENOX) SYR SQ SCH (13:07)
--- NOTE | 2020-12-08 14:50 | Physical Therapy Daily Note ---
PT Daily Note-Current Subjective Pt in bed upon arrival and agrees to tx. Pt has no c/o pain Mental Status Patient Orientation: Person, Place, Time, Situation Attachments: Oxygen Transfers SCALE: Activities may be completed with or without assistive devices. 4-Gerqpfpnec-prgzxxb completes the activity by him/herself with no assistance from a helper. 5-Set-up or Clean-up Assistance-helper sets up or cleans up; patient completes activity. [place] assists only prior to or following the activity. 4-Supervision or Touching Assistance-helper provides verbal cues and/or touching/steadying and/or contact guard assistance as patient completes activity. Assistance may be provided throughout the activity or intermittently. 3-Partial/Moderate Assistance-helper does LESS THAN HALF the effort. [place] lifts, holds or supports trunk or limbs, but provides less than half the effort. 2-Substantial/Maximal Assistance-helper does MORE THAN HALF the effort. [place] lifts or holds trunk or limbs and provides more than half the effort. 4-Aalaiwqux-bddtss does ALL the effort. Patient does none of the effort to complete the activity. Or, the assistance of 2 or more helpers is required for the patient to complete the activity. If activity was not attempted, code reason: 7-Patient Refused. 9-Not Applicable-not attempted and the patient did not perform the activity before the current illness, exacerbation or injury. 10-Not Attempted due to Environmental Limitations-(lack of equipment, weather restraints, etc.). 88-Not Attempted due to Medical Conditions or Safety Concerns. Sit to Lying (QC): 5 Lying to Sitting/Side of Bed(Q: 5 Sit to Stand (QC): 5 Gait Training Does the Patient Walk?: Yes Distance: 200' Walk 10 feet (QC): 4 Walk 50 ft with 2 Turns(QC): 4 Walk 150 ft (QC): 4 Gait Assistive Device: None Pt amb w/o an AD, has steady and stable gait Treatments Pt supine to sit and sit to standSBA and amb in halls 200' SBA w/o an AD. Pt returns to room and request to use bathroom. Pt able to don/doff pants, clean self, and wash hands SBA. Pt amb back to bed and was left with all needs met, call light in hand Assessment Current Status: Good Progress Pt increase amb distance, with steady gait PT Long-Term Goals Long-Term Goals PT Long-Term Goals Time Frame: Dec 12, 2020 Roll Left & Right (QC): 6 Sit to Lying (QC): 6 Lying-Sitting on Side/Bed(QC): 6 Sit to Stand (QC): 4 Chair/Svg-jc-Jpnhk Xfer(QC): 4 Walk 10 feet (QC): 4 Walk 50ft with 2 Turns (QC): 4 PT Plan Treatment/Plan Treatment Plan: Continue Plan of Care Treatment Plan: Bed Mobility, Education, Functional Activity Toni, Functional Strength, Gait, Safety, Therapeutic Exercise, Transfers Treatment Duration: Dec 12, 2020 Frequency: 6 times per week Estimated Hrs Per Day: .25 hour per day Patient and/or Family Agrees t: Yes Time/GCodes Time In: 1427 Time Out: 1445 Total Billed Treatment Time: 18 Total Billed Treatment KULDIP Shipman SYDNEY LUMBER MOVER Dec 08, 2020 14:50
[2020-12-08 16:00] VITALS: BP 160/87
--- NOTE | 2020-12-08 17:22 | Progress Note - Hospitalist ---
Subjective HPI/CC On Admission Date Seen by Provider: Dec 08, 2020 Time Seen by Provider: 11:35 Patient is 70-year-old female with past medical history of hypertension, hyperlipidemia, tobacco abuse, history of CVA who presented to outside ER due to shortness of breath. She states she has been feeling poorly for roughly 2 weeks and was seen by Kenny Cox at the [facility] and diagnosed with pneumonia. She was started on antibiotics at that time but did not improve. She saw him again and was prescribed steroids and a different antibiotic and continued to cough and feel poorly. On November 29 she suffered a fall on her right side and since then has not been able to cough very well due to pain. She had a home visit from [facility] yesterday evening and was advised to seek care in the emergency department. She had a leukocytosis of 15 which is actually down from 25 a week ago but was hypoxic and they decided to admit for pneumonia due to failing outpatient antibiotics. I received a call this morning from Dr. Levin who saw her in the emergency room and report read 30% right-sided pneumothorax. Subjective/Events-last exam She is feeling better. She denies trouble breathing. She only has pain where her Thoravent is inserted. Objective Exam Vital Signs Vital Signs Date Time Temp Pulse Resp B/P (MAP) Pulse Ox O2 Delivery O2 Flow Rate FiO2 12/08/20 16:00 36.7 77 18 160/87 (111) 95 Nasal Cannula 2.00 12/06/20 19:15 95 Capillary Refill : General Appearance: No Apparent Distress, Chronically ill, Cachetic Respiratory: Lungs Clear, No Respiratory Distress, Decreased Breath Sounds Cardiovascular: Regular Rate, Rhythm, No Edema, No Murmur Gastrointestinal: Normal Bowel Sounds, Non Tender, Soft Extremity: Normal Inspection, Non Tender, No Pedal Edema Neurologic/Psychiatric: Alert, Oriented x3 Skin: Normal Color, Warm/Dry Results/Procedures Lab Laboratory Tests 12/08/20 05:45 Patient resulted labs reviewed. Imaging: Reviewed Imaging Report Assessment/Plan Assessment and Plan Assess & Plan/Chief Complaint Right sided pneumothorax Bilateral pneumonia Continue Rocephin and Azithromycin Surgery following Thoravent in place Repeat CXR shows tiny pneumothorax HTN HLD h/o of CVA Continue home meds BP well controlled Emphysema Active tobacco use MAT protocol Nicotine patch prn Cachexia Clinically significant, no acute management needs DVT ppx: Lovenox Diagnosis/Problems Diagnosis/Problems (1) Pneumothorax on right Status: Acute (2) Left lower lobe pneumonia Status: Acute (3) Tobacco abuse Status: Chronic (4) Cachexia Status: Chronic (5) HLD (hyperlipidemia) Status: Chronic Qualifiers: Hyperlipidemia type: unspecified Qualified Codes: E78.5 - Hyperlipidemia, unspecified (6) Essential (primary) hypertension Status: Chronic (7) Emphysema of lung Status: Chronic TALA THORNTON MD Dec 08, 2020 17:22
[2020-12-08 19:56] VITALS: BP 126/67
[2020-12-08] MEDS ORDERED: AZITHROMYCIN 250 MG TAB (ZITHROMAX) PO SCH (21:00)
[2020-12-08] MEDS: amLODIPine 5 MG (NORVASC) TAB PO SCH (21:04)
[2020-12-08] MEDS: AtorvaSTATin TABLET 10 MG TABLET PO SCH (21:04)
[2020-12-08] MEDS: ACETAMINOPHEN 325 MG TABLET PO PRN (23:57)
[2020-12-09] VITALS (7 sets, daily range): BP systolic 141–172; BP diastolic 65–89
[2020-12-09] MEDS: cefTRIAXone 1,000 MG in WATER (STERILE) FOR INJECTION 10 ML IV SCH (02:33)
--- NOTE | 2020-12-09 07:13 | Progress Note - Surgery ---
PHILL BUTLER 12/09/20 0713: Subjective Time Seen by a Provider: 07:00 Subjective/Events-last exam Pt reports to feeling about the same in terms of her breathing, improving. She denies nausea, vomiting, fever, sweats, chills, shortness of breath, or chest pain. CXR on 12/08 showed small right pneumothorax apical region. Objective Exam Vital Signs Date Time Temp Pulse Resp B/P (MAP) Pulse Ox O2 Delivery O2 Flow Rate FiO2 12/09/20 03:45 36.2 60 18 142/67 (92) 97 Nasal Cannula 2.00 12/09/20 00:02 37.4 57 18 143/70 (94) 96 Nasal Cannula 2.00 12/08/20 20:00 2.00 12/08/20 19:56 36.8 77 18 126/67 (86) 96 Nasal Cannula 2.00 12/08/20 18:47 93 Nasal Cannula 2.00 12/08/20 16:00 36.7 77 18 160/87 (111) 95 Nasal Cannula 2.00 12/08/20 12:29 35.8 82 19 167/70 (102) 94 Nasal Cannula 2.00 12/08/20 11:48 Nasal Cannula 12/08/20 08:05 157/78 (104) 12/08/20 08:00 2.00 12/08/20 07:50 36.6 84 18 179/84 (115) 93 Nasal Cannula 2.00 I & O 12/09/20 07:00 Intake Total 1660 ml Output Total 2950 ml Balance -1290 ml Capillary Refill : General Appearance: No Apparent Distress, Chronically ill, Thin HEENT: PERRL/EOMI, Normal ENT Inspection Neck: Normal Inspection, Supple Respiratory: Chest Non Tender, No Accessory Muscle Use, No Respiratory Distress, Other (thoravent on right side) Cardiovascular: Regular Rate, Rhythm, No JVD Gastrointestinal: non tender, soft Extremity: Normal Capillary Refill, Non Tender, No Calf Tenderness Neurologic/Psychiatric: Alert, Oriented x3, Normal Mood/Affect Skin: Normal Color, Warm/Dry Lymphatic: No Adenopathy Results Lab Microbiology 12/05/20 Gram Stain - Final, Complete 12/05/20 Sputum Culture - Final, Complete Usual upper respiratory walter Assessment/Plan Assessment/Plan Assessment/Plan Pneumothorax right side B/L pneumonia HTN Low BMI Thoravent in place until pneumothorax resolves. Repeat chest x ray in am. continue management of b/l pneumonia. FENG ALCANTARA DO 12/09/201915: Subjective Subjective/Events-last exam Patient doing well. Breathing okay. Patient with Thora vent in the right chest. Patient does not have any valve movement with deep inspiration or expiration. Chest x-ray demonstrating no significant right pneumothorax. Denies any nausea vomiting fever sweats chills shortness of breath or chest pain. Objective Exam General Appearance: No Apparent Distress, Thin HEENT: PERRL/EOMI, Normal ENT Inspection Neck: Normal Inspection Respiratory: Chest Non Tender, No Accessory Muscle Use, No Respiratory Distress Cardiovascular: Regular Rate, Rhythm, No JVD Gastrointestinal: non tender, soft Extremity: Normal Capillary Refill, Non Tender, No Calf Tenderness Neurologic/Psychiatric: Alert, Oriented x3, Normal Mood/Affect Skin: Normal Color, Warm/Dry Lymphatic: No Adenopathy Assessment/Plan Assessment/Plan Assessment/Plan Pneumothorax right side B/L pneumonia HTN Low BMI Thoravent in place. Will plug valve and repeat chest x ray in am. If any shortn ess of breath will get chest x ray and release valve plug. Discussed with nurse. If chest x ray stable will remove thoravent and repeat chest x ray in 4 hours. If stable can dc home from surgical standpoint. Patient understands and agrees with plan. Supervisory-Addendum Brief Verification & Attestation Participated in pt care: history, MDM, physical Personally performed: exam, history, MDM, supervision of care Care discussed with: Medical Student Procedures: n/a Results interpretation: Verified all documentation Verification and Attestation of Medical Student E/M Service A medical student performed and documented this service in my presence. I reviewed and verified all information documented by the medical student and made modifications to such information, when appropriate. I personally performed the physical exam and medical decision making. Feng Alcantara, Dec 09, 2020,19:15 PHILL BUTLER Dec 09, 2020 07:13 FENG ALCANTARA DO Dec 09, 2020 19:16
[2020-12-09] MEDS: RT-ALBUTEROL/IPRATROPIUM 3 ML (DUONEB) VIAL INH SCH ×4 (07:18→18:49)
--- NOTE | 2020-12-09 07:25 | Diagnostic Imaging Report ---
History: Follow-up right pneumothorax COMPARISON: 12/08/2020 TECHNIQUE: Frontal view the chest FINDINGS: Lung volumes are large. There is blunting of the right costophrenic angle which is unchanged. A right pleural catheter appears to be in stable position. No significant pneumothorax is seen. There is bibasilar atelectasis or scarring. There is scarring in the lung apices. There is air about the right chest wall. IMPRESSION: 1. Right pleural catheter. No significant pneumothorax. 2. Small right pleural effusion. Bibasilar atelectasis/scarring. Dictated by: Dictated on workstation # [id number]
[2020-12-09] MEDS: CALCIUM CARBONATE 500 MG (TUMS) TAB.CHEW PO SCH (09:22)
[2020-12-09] MEDS: ASPIRIN E.C. 81 MG (ECOTRIN) TAB PO SCH (09:22)
[2020-12-09] MEDS: lisINopril 20 MG (PRINIVIL) TABLET PO SCH (09:22)
[2020-12-09] MEDS: LACTOBACILLUS ACIDOPHILUS (PROBIOTIC) CAPSULE PO SCH ×3 (09:22→18:26)
[2020-12-09] MEDS: meTOprolol TARTRATE 25 MG (LOPRESSOR) TABLET PO SCH ×2 (09:22→21:10)
[2020-12-09] MEDS: NICOTINE 21 MG (NICODERM) PATCH TD SCH (09:23)
[2020-12-09] MEDS: NICOTINE PATCH REMOVAL TP SCH (09:23)
--- NOTE | 2020-12-09 10:19 | Physical Therapy Daily Note ---
PT Daily Note-Current Subjective Patient agrees to PT. Family present. Mental Status Patient Orientation: Normal For Age Attachments: Oxygen Transfers SCALE: Activities may be completed with or without assistive devices. 0-Dehnpzayqo-kavvcqp completes the activity by him/herself with no assistance from a helper. 5-Set-up or Clean-up Assistance-helper sets up or cleans up; patient completes activity. [place] assists only prior to or following the activity. 4-Supervision or Touching Assistance-helper provides verbal cues and/or touching/steadying and/or contact guard assistance as patient completes activity. Assistance may be provided throughout the activity or intermittently. 3-Partial/Moderate Assistance-helper does LESS THAN HALF the effort. [place] lifts, holds or supports trunk or limbs, but provides less than half the effort. 2-Substantial/Maximal Assistance-helper does MORE THAN HALF the effort. [place] lifts or holds trunk or limbs and provides more than half the effort. 1-Euoqjyjkh-erdnwn does ALL the effort. Patient does none of the effort to complete the activity. Or, the assistance of 2 or more helpers is required for the patient to complete the activity. If activity was not attempted, code reason: 7-Patient Refused. 9-Not Applicable-not attempted and the patient did not perform the activity before the current illness, exacerbation or injury. 10-Not Attempted due to Environmental Limitations-(lack of equipment, weather restraints, etc.). 88-Not Attempted due to Medical Conditions or Safety Concerns. Lying to Sitting/Side of Bed(Q: 6 Sit to Stand (QC): 6 Gait Training Does the Patient Walk?: Yes Distance: 500' Walk 10 feet (QC): 6 Walk 50 ft with 2 Turns(QC): 6 Walk 150 ft (QC): 6 Gait Assistive Device: None no deviation on this date/up in room ad chuck without difficulty Assessment Patient currently at independent [facility] with all gross motor skills. PT to dismiss patient from services at this time. PT Half-Way Goals [employer] Helper Goals PT [employer] P[employer] Helper Goals Time Frame: Dec 12, 2020 Roll Left & Right (QC): 6 Sit to Lying (QC): 6 Lying-Sitting on Side/Bed(QC): 6 Sit to Stand (QC): 4 Chair/Jit-av-Yfsdq Xfer(QC): 4 Walk 10 feet (QC): 4 Walk 50ft with 2 Turns (QC): 4 PT Plan Treatment/Plan Treatment Plan: Discontinue PT, goals met Treatment Plan: Bed Mobility, Education, Functional Activity Toni, Functional Strength, Gait, Safety, Therapeutic Exercise, Transfers Treatment Duration: Dec 12, 2020 Frequency: 6 times per week Estimated Hrs Per Day: .25 hour per day Patient and/or Family Agrees t: Yes Time/GCodes Time In: 855 Time Out: 906 Total Billed Treatment Time: 11 Total Billed Treatment 1 visit FA 11 min CHERI REYES PT Dec 09, 2020 10:19
[2020-12-09] MEDS: ENOXAPARIN 30 MG/0.3 ML (LOVENOX) SYR SQ SCH (13:00)
--- NOTE | 2020-12-09 14:11 | Progress Note - Hospitalist ---
Subjective HPI/CC On Admission Date Seen by Provider: Dec 09, 2020 Time Seen by Provider: 10:35 Patient is 70-year-old female with past medical history of hypertension, hyperlipidemia, tobacco abuse, history of CVA who presented to outside ER due to shortness of breath. She states she has been feeling poorly for roughly 2 weeks and was seen by Kenny Cox at the [facility] and diagnosed with pneumonia. She was started on antibiotics at that time but did not improve. She saw him again and was prescribed steroids and a different antibiotic and continued to cough and feel poorly. On November 29 she suffered a fall on her right side and since then has not been able to cough very well due to pain. She had a home visit from [facility] yesterday evening and was advised to seek care in the emergency department. She had a leukocytosis of 15 which is actually down from 25 a week ago but was hypoxic and they decided to admit for pneumonia due to failing outpatient antibiotics. I received a call this morning from Dr. Levni who saw her in the emergency room and report read 30% right-sided pneumothorax. Subjective/Events-last exam She is feeling well. She is not short of breath. She is not having pain. She has been eating and drinking. She has been up and moving around. Objective Exam Vital Signs Vital Signs Date Time Temp Pulse Resp B/P (MAP) Pulse Ox O2 Delivery O2 Flow Rate FiO2 12/09/20 11:25 36.4 68 22 171/73 (105) 94 Nasal Cannula 2.00 12/06/20 19:15 95 Capillary Refill : General Appearance: No Apparent Distress, Cachetic Respiratory: Lungs Clear, Normal Breath Sounds, No Respiratory Distress Cardiovascular: Regular Rate, Rhythm, No Edema, No Murmur Gastrointestinal: Normal Bowel Sounds, Non Tender, Soft Extremity: Normal Inspection, Non Tender, No Pedal Edema Neurologic/Psychiatric: Alert, Oriented x3, Normal Mood/Affect Skin: Normal Color, Warm/Dry Results/Procedures Lab Patient resulted labs reviewed. Imaging: Reviewed Imaging Report Assessment/Plan Assessment and Plan Assess & Plan/Chief Complaint Right sided pneumothorax Bilateral pneumonia Transition to oral antibiotics Surgery following Thoravent in place Repeat CXR shows no pneumothorax HTN HLD h/o of CVA Continue home meds BP well controlled Emphysema Active tobacco use MAT protocol Nicotine patch prn Cachexia Clinically significant, no acute management needs DVT ppx: Lovenox Diagnosis/Problems Diagnosis/Problems (1) Pneumothorax on right Status: Acute (2) Left lower lobe pneumonia Status: Acute (3) Tobacco abuse Status: Chronic (4) Cachexia Status: Chronic (5) HLD (hyperlipidemia) Status: Chronic Qualifiers: Hyperlipidemia type: unspecified Qualified Codes: E78.5 - Hyperlipidemia, unspecified (6) Essential (primary) hypertension Status: Chronic (7) Emphysema of lung Status: Chronic TALA THORNTON MD Dec 09, 2020 14:11
[2020-12-09] MEDS ORDERED: CEFDINIR 300 MG (OMNICEF) CAP PO ONE (14:30)
[2020-12-09] MEDS: CEFDINIR 300 MG (OMNICEF) CAP PO SCH (21:09)
[2020-12-09] MEDS: amLODIPine 5 MG (NORVASC) TAB PO SCH (21:10)
[2020-12-09] MEDS: AtorvaSTATin TABLET 10 MG TABLET PO SCH (21:10)
[2020-12-10 03:47] VITALS: BP 120/69
--- NOTE | 2020-12-10 06:36 | Diagnostic Imaging Report ---
Indication: Pneumothorax follow-up Upright portable chest shows normal heart size and vascularity. There is basilar atelectasis. A chest tube remains in place on the right with no pneumothorax evident and no significant change from 12/09/2020. IMPRESSION: Stable chest. Dictated by: Dictated on workstation # [id number]
--- NOTE | 2020-12-10 07:21 | Progress Note - Surgery ---
PHILL BUTLER 12/10/20 0721: Subjective Time Seen by a Provider: 07:00 Subjective/Events-last exam Pt reports no changes since yesterday, she is still breathing well with right thoravent in place. Denies SOB, CP, N/V, diarrhea, constipation, fever, chills, or abdominal pain. Objective Exam Vital Signs Date Time Temp Pulse Resp B/P (MAP) Pulse Ox O2 Delivery O2 Flow Rate FiO2 12/10/20 03:47 36.2 57 18 120/69 (86) 95 Nasal Cannula 2.00 12/09/20 23:53 36.4 67 18 144/86 (105) 95 Nasal Cannula 2.00 12/09/20 20:59 95 Nasal Cannula 2.00 12/09/20 20:22 36.2 77 18 141/65 (90) 95 Nasal Cannula 2.00 12/09/20 18:49 94 Nasal Cannula 2.00 12/09/20 16:19 172/75 (107) 12/09/20 16:07 36.2 96 18 92 Nasal Cannula 2.00 12/09/20 14:37 95 Nasal Cannula 2.00 12/09/20 11:25 36.4 68 22 171/73 (105) 94 Nasal Cannula 2.00 12/09/20 09:37 93 Nasal Cannula 2.00 12/09/20 07:58 36.4 86 18 161/89 (113) 90 Room Air 12/09/20 07:18 94 Nasal Cannula 2.00 I & O0 12/10/20 07:00 Intake Total 1840 ml Output Total 2000 ml Balance -160 ml Capillary Refill : General Appearance: No Apparent Distress, Thin HEENT: PERRL/EOMI, Normal ENT Inspection Neck: Normal Inspection Respiratory: Chest Non Tender, No Accessory Muscle Use, No Respiratory Distress Cardiovascular: Regular Rate, Rhythm, No JVD Gastrointestinal: non tender, soft Extremity: Normal Capillary Refill, Non Tender, No Calf Tenderness Neurologic/Psychiatric: Alert, Oriented x3, Normal Mood/Affect Skin: Normal Color, Warm/Dry Lymphatic: No Adenopathy Results Lab Microbiology 12/05/20 Gram Stain - Final, Complete 12/05/20 Sputum Culture - Final, Complete Usual upper respiratory walter Assessment/Plan Assessment/Plan Assessment/Plan Pneumothorax right side B/L pneumonia HTN Low BMI Thoravent in place. Plugged valve yesterday and repeat chest x ray this morning shows no pneumothorax. I released the valve plug today and ordered a repeat CXR in 4 hours, If stable can dc home from surgical standpoint. Patient understands and agrees with plan. FENG ALCANTARA DO 12/10/20 1127: Subjective Subjective/Events-last exam Breathing okay. No new complaints. Thoravent has been plugged and no pneumothorax on chest x ray. Denies n/v fever sweats chills shortness of breath or chest pain. Objective Exam General Appearance: No Apparent Distress, Thin HEENT: PERRL/EOMI, Normal ENT Inspection Neck: Normal Inspection, Supple Respiratory: Chest Non Tender, No Accessory Muscle Use Cardiovascular: No JVD Gastrointestinal: non tender, soft Extremity: Non Tender, No Calf Tenderness Neurologic/Psychiatric: Alert, Oriented x3, Normal Mood/Affect Skin: Normal Color, Warm/Dry Lymphatic: No Adenopathy Assessment/Plan Assessment/Plan Assessment/Plan Pneumothorax right side B/L pneumonia HTN Low BMI Thoravent in place. Plugged valve yesterday and repeat chest x ray this morning shows no pneumothorax. Removed thoravent and placed vaseline gauze over opening with dressing. Repeat chest x ray 4 hours, If stable can dc home from surgical standpoint. Patient understands and agrees with plan. Supervisory-Addendum Brief Verification & Attestation Participated in pt care: history, MDM, physical Personally performed: exam, history, MDM, supervision of care Care discussed with: Medical Student Procedures: n/a Results interpretation: Verified all documentation Verification and Attestation of Medical Student E/M Service A medical student performed and documented this service in my presence. I reviewed and verified all information documented by the medical student and made modifications to such information, when appropriate. I personally performed the physical exam and medical decision making. Feng Alcantara, Dec 10, 2020,11:27 PHILL BUTLER Dec 10, 2020 07:21 FENG ALCANTARA DO Dec 10, 2020 11:27
[2020-12-10] MEDS ORDERED: CEFD300C3 PO (07:50)
[2020-12-10 08:00] VITALS: BP 145/68
[2020-12-10] MEDS: RT-ALBUTEROL/IPRATROPIUM 3 ML (DUONEB) VIAL INH SCH ×2 (08:28→11:26)
[2020-12-10] MEDS: lisINopril 20 MG (PRINIVIL) TABLET PO SCH (08:32)
[2020-12-10] MEDS: CALCIUM CARBONATE 500 MG (TUMS) TAB.CHEW PO SCH (08:32)
[2020-12-10] MEDS: LACTOBACILLUS ACIDOPHILUS (PROBIOTIC) CAPSULE PO SCH ×2 (08:32→13:54)
[2020-12-10] MEDS: CEFDINIR 300 MG (OMNICEF) CAP PO SCH (08:32)
[2020-12-10] MEDS: NICOTINE PATCH REMOVAL TP SCH (08:33)
[2020-12-10] MEDS: ASPIRIN E.C. 81 MG (ECOTRIN) TAB PO SCH (08:33)
[2020-12-10] MEDS: meTOprolol TARTRATE 25 MG (LOPRESSOR) TABLET PO SCH (08:33)
[2020-12-10] MEDS: NICOTINE 21 MG (NICODERM) PATCH TD SCH (08:33)
[2020-12-10 12:00] VITALS: BP 164/67
--- NOTE | 2020-12-10 12:54 | Diagnostic Imaging Report ---
EXAMINATION: Chest, one view. HISTORY: Hypoxia. COMPARISON: 12/10/2020. FINDINGS: Heart size and pulmonary vasculature are normal. Small bilateral pleural effusions. Interval removal of the Thora-Vent. Stable small right apical pneumothorax. Stable coarse interstitial opacities in the lung bases. The osseous structures are intact. IMPRESSION: 1. Interval removal of the Thora-Vent with stable small right apical pneumothorax. 2. Stable small bilateral pleural effusions with adjacent atelectasis or consolidation. Dictated by: Dictated on workstation # [id number]
--- NOTE | 2020-12-10 14:06 | Discharge Summary ---
Discharge Summary Hospital Course Problems/Dx: (1) Pneumothorax on right Status: Acute (2) Left lower lobe pneumonia Status: Acute (3) Tobacco abuse Status: Chronic (4) Cachexia Status: Chronic (5) HLD (hyperlipidemia) Status: Chronic Qualifiers: Qualified Codes: E78.5 - Hyperlipidemia, unspecified (6) Essential (primary) hypertension Status: Chronic (7) Emphysema of lung Status: Chronic Hospital Course Date of Admission: Dec 05, 2020 at 01:21 Admission Diagnosis: Bilateral pneumonia, Pneumothorax Family Physician/Provider: Rose Mary Negron MD Date of Discharge: 12/10/20 Discharge Diagnosis: Bilateral pneumonia, Pneumothorax Hospital Course: Cristel Seth is a 70 year old female with COPD, tobacco abuse, HTN, HLD, who was admitted with pneumonia and pneumothorax. She was started on antibiotics and improved. She had a Thoravent placed by surgery. Her pneumothorax improved and the Thoravent was removed. She was not requiring any supplemental oxygen at the time of discharge. She was sent home with [facility] to complete her course of antibiotics. She was discharged home in stable condition. Labs and Pending Lab Test: Microbiology 12/05/20 Gram Stain - Final, Complete 12/05/20 Sputum Culture - Final, Complete Usual upper respiratory walter Home Meds Active Cefdinir 300 Mg Capsule 300 Mg PO BID 3 Days Reported Atorvastatin Calcium 10 Mg Tablet 10 Mg PO HS Metoprolol Tartrate 25 Mg Tablet 12.5 Mg PO BID TAKES OF A 25MG TAB Prednisone 20 Mg Tab Mg PO DAILY FILLED 12-02-2020 #03/10 DAY SUPPLY TAPER DOSE: 4 TABS DAILY X 2 DAYS, 3 TABS DAILY X 2 DAYS, 2 TABS DAILY X 2 DAYS, THEN 1 TAB DAILY X 2 DAYS Albuterol Sulfate 2.5 Mg/3 Ml Vial.neb 3 Ml NEB QID PRN Levofloxacin 750 Mg Tablet 750 Mg PO DAILY FILLED 12-03-2020 #11/23 DAY SUPPLY Calcium Carbonate 500 Mg Tablet 500 Mg PO DAILY Lisinopril 20 Mg Tablet 20 Mg PO DAILY Amlodipine Besylate 5 Mg Tablet 5 Mg PO HS Aspirin EC (Aspirin) 81 Mg Tablet. 81 Mg PO DAILY Assessment/Pt Instructions Take medications as prescribed. Follow up with your PCP. Return with worsening shortness of breath or if you feel like you are getting worse. Discharge Planning: <30 minutes discharge planning Discharge Instructions Discharge Diet: No Restrictions Activity as Tolerated: Yes Discharge Physical Examination Vital Signs Vital Signs Date Time Temp Pulse Resp B/P (MAP) Pulse Ox O2 Delivery O2 Flow Rate FiO2 12/10/20 12:00 37.0 84 20 164/67 (99) 91 Room Air 12/10/20 08:30 2.00 12/06/20 19:15 95 General Appearance: No Apparent Distress, Cachetic Respiratory: No Respiratory Distress, Decreased Breath Sounds Cardiovascular: Regular Rate, Rhythm, No Edema, No Murmur Gastrointestinal: Normal Bowel Sounds, Non Tender, Soft Extremity: Normal Inspection, Non Tender, No Pedal Edema Skin: Normal Color, Warm/Dry Neurologic/Psychiatric: Alert, Oriented x3, No Motor/Sensory Deficits, Normal Mood/Affect Allergies: Coded Allergies: No Known Drug Allergies (Unverified , 11/22/16) Copy Copies To 1: ROSE MARY NEGRON MD Discharge Summary Date of Admission Dec 05, 2020 at 01:21 Date of Discharge Discharge Date: Dec 10, 2020 Discharge Time: 14:02 Admission Diagnosis Right sided pneumothorax bilateral pneumonia Consults/Procedures Consulations Surgery Procedures ThoraVent Discharge Diagnosis Right sided pneumothorax Bilateral pneumonia (1) Pneumothorax on right Status: Acute (2) Left lower lobe pneumonia Status: Acute (3) Tobacco abuse Status: Chronic (4) Cachexia Status: Chronic (5) HLD (hyperlipidemia) Status: Chronic Qualifiers: Qualified Codes: E78.5 - Hyperlipidemia, unspecified (6) Essential (primary) hypertension Status: Chronic (7) Emphysema of lung Status: Chronic TALA THORNTON MD Dec 10, 2020 14:00
[2020-12-10 14:51] VITALS: BP 164/67
== END 2020-12-10 14:27 | disposition home or self-care (01) | DRG 199 ==
LOC: 4TH 12-05 01:21
PROVIDERS: ADMIT Internal Medicine; ATTEND Internal Medicine
PROC: 0W9930Z Drainage of Right Pleural Cavity with Drainage Device, Percutaneous Approach (ICD-10-PCS; principal; 2020-12-06)
DX: J93.9 Pneumothorax, unspecified (principal); J18.9 Pneumonia, unspecified organism; R64 Cachexia; Z68.1 Body mass index [BMI] 19.9 or less, adult; I69.354 Hemiplegia and hemiparesis following cerebral infarction affecting left non-dominant side; J90 Pleural effusion, not elsewhere classified; J43.9 Emphysema, unspecified; I10 Essential (primary) hypertension; I73.9 Peripheral vascular disease, unspecified; H54.7 Unspecified visual loss; E78.5 Hyperlipidemia, unspecified; R09.02 Hypoxemia; F17.210 Nicotine dependence, cigarettes, uncomplicated; I25.2 Old myocardial infarction; Z79.82 Long term (current) use of aspirin; Z79.899 Other long term (current) drug therapy
CPT/HCPCS: 36415; 71045; 80048; 85027; 87070; 87205; 94640; 94760; 94761